=== PATIENT | male | born 1945 | race African-American/Black ===

== ENCOUNTER 2016-07-13 17:28 | Emergency (ER) | payer OTHER ==
[2016-07-13 17:34] VITALS: BP 131/90; PULSE 94; BMI 26.4
[2016-07-13] MEDS ORDERED: morphine CARPU-JECT 4 MG/1 ML DISP.SYRIN IVPUSH ONE (18:14)
[2016-07-13] MEDS ORDERED: SODIUM CHLORIDE 1,000 ML IV STA (18:14)
[2016-07-13] MEDS ORDERED: ONDANSETRON 4 MG/2 ML VIAL IVPUSH ONE (18:14)
--- NOTE | 2016-07-13 18:19 | PDOC ---
History of Present Illness - General History Source: Patient Exam Limitations: No Limitations - History of Present Illness Initial Comments: CHIEF COMPLAINT: 71 y/o afebrile male with PMH gout c/o abdominal pain with nausea today. HISTORY OF PRESENT ILLNESS: The patient states he was getting hot sweats on and off since yesterday. He ignored it but today he felt cramping in his hands and legs and then began feeling nauseous with right sided abd pain. The patient denies fever, VAIL, cough, vomiting, CP, SOB, back pain, hematuria, dysuria, constipation. Vital signs on arrival are notable for pulse of 94. REVIEW OF SYSTEMS: GENERAL/CONSTITUTIONAL: +hot sweats. No weakness. No weight change. HEAD, EYES, EARS, NOSE AND THROAT: No change in vision. No ear pain or discharge. No sore throat. CARDIOVASCULAR: No chest pain or shortness of breath. RESPIRATORY: No cough, wheezing, or hemoptysis. GASTROINTESTINAL: +nausea, right sided abd pain. No vomiting, diarrhea, constipation. GENITOURINARY: No dysuria, frequency, or change in urination. MUSCULOSKELETAL: No joint or muscle swelling or pain. No neck or back pain. SKIN: No rash or easy bruising. NEUROLOGIC: No headache, vertigo, loss of consciousness, or loss of sensation. PHYSICAL EXAM: GENERAL: The patient is awake, alert, and fully oriented, in obvious moderate discomfort. He is trying to remain very still in the bed. HEAD: Normal with no signs of trauma. ENT: Pupils equal, round and reactive to light, extraocular movements intact, sclera anicteric, conjunctiva clear. Neck supple. LUNGS: Clear to auscultation bilaterally. Normal excursion. No respiratory distress or use of accessory muscles. CV: RRR, S1/S2, no MRG. Cap refill < 2 sec. ABDOMEN: Soft, non-distended, TTP of RUQ and RLQ with +davis's sign. No rebound, guarding or rigidity. Negative heel jar sign. +obturator sign. EXTREMITIES: Normal range of motion, no edema. NEUROLOGICAL: Normal speech, normal gait. CN II-XII grossly intact. PSYCH: Normal mood, normal affect. SKIN: Warm, dry, normal turgor, no rashes or lesions noted. <Jessica Henry - Last Filed: 07/13/16 18:13> <Ricky Shultz - Last Filed: 07/13/16 22:35> - General Chief Complaint: Pain Stated Complaint: NUMBNESS Time Seen by Provider: 07/13/16 17:55 Past History - Past Medical History HTN: Yes Hypercholesterolemia: Yes Suicide Attempt (Hx): No Other medical history: UNUSUAL FEELING TO B/L FEET. - Psycho/Social/Smoking Cessation Hx Anxiety: No Suicidal Ideation: No Smoking Status: No Smoking History: Never smoked Have you smoked in the past 12 months: No Number of Cigarettes Smoked Daily: 0 Hx Alcohol Use: No Drug/Substance Use Hx: No Substance Use Type: None <Jessica Henry - Last Filed: 07/13/16 18:13> <Ricky Shultz - Last Filed: 07/13/16 22:35> - Past Medical History Allergies/Adverse Reactions: Allergies Allergy/AdvReac Type Severity Reaction Status Date / Time aspirin Allergy Verified 07/13/16 17:33 clindamycin Allergy Verified 07/13/16 17:33 Home Medications: Ambulatory Orders Colchicine [Colcrys -] 0.6 mg PO DAILY #15 tablet 09/29/15 Gabapentin [Neurontin] 300 mg PO BID 07/13/16 Lisinopril [Prinivil] 20 mg PO DAILY 07/13/16 Naproxen [Naprosyn -] 300 mg PO BID 07/13/16 Rosuvastatin Calcium [Crestor] 10 mg PO HS 07/13/16 *Physical Exam - Vital Signs Last Vital Signs Temp Pulse Resp BP Pulse Ox 98.0 F 94 H 18 131/90 99 07/13/16 17:29 07/13/16 17:29 07/13/16 17:29 07/13/16 17:29 07/13/16 17:29 <Jessica Henry - Last Filed: 07/13/16 18:13> - Vital Signs Last Vital Signs Temp Pulse Resp BP Pulse Ox 99.8 F H 94 H 18 131/90 99 07/13/16 20:21 07/13/16 17:29 07/13/16 17:29 07/13/16 17:29 07/13/16 17:29 <Ricky Shultz - Last Filed: 07/13/16 22:35> Heart Score/ECG Review - ECG Intrepretation Comment:: Twelve-lead EKG was performed and reviewed by Dr. Villanueva. There is normal sinus rhythm with a normal rate. The axis is normal. The intervals are normal. There are no ST or T wave abnormalities. Impression: Normal twelve-lead EKG <Jessica Henry - Last Filed: 07/13/16 18:13> ED Treatment Course - LABORATORY CBC & Chemistry Diagram: 07/13/16 19:00 07/13/16 20:00 - ADDITIONAL ORDERS Additional order review: Laboratory Results 07/13/16 07/13/16 07/13/16 20:00 20:00 19:06 INR Sodium 141 Cancelled Potassium 4.2 Cancelled Chloride 107 Cancelled Carbon Dioxide 24 Cancelled Anion Gap 10 Cancelled BUN 17 Cancelled Creatinine 1.7 H D Cancelled Creat Clearance w eGFR 39.93 Cancelled Random Glucose 102 Cancelled Lactic Acid Calcium 8.4 L Cancelled Magnesium 2.2 Total Bilirubin 0.4 D Cancelled AST 25 Cancelled ALT 28 D Cancelled Alkaline Phosphatase 123 H Cancelled Creatine Kinase 292 D Cancelled Troponin I < 0.02 Cancelled Total Protein 6.9 Cancelled Albumin 3.3 L Cancelled Lipase 75 Cancelled 07/13/16 07/13/16 19:06 19:00 INR 1.11 Sodium Potassium Chloride Carbon Dioxide Anion Gap BUN Creatinine Creat Clearance w eGFR Random Glucose Lactic Acid 2.225 H* Calcium Magnesium Total Bilirubin AST ALT Alkaline Phosphatase Creatine Kinase Troponin I Total Protein Albumin Lipase 07/13/16 19:00 RBC 5.01 MCV 85.2 MCHC 33.5 RDW 13.8 MPV 8.7 D Neutrophils % 67.8 D Lymphocytes % 18.6 D Monocytes % 10.7 H Eosinophils % 0.9 Basophils % 2.0 D - Medications Given in the ED: ED Medications Discontinued Medications Generic Name Dose Route Start Last Admin Trade Name Freq PRN Reason Stop Dose Admin Sodium Chloride 1,000 mls @ 1,000 mls/hr 07/13/16 18:14 07/13/16 19:01 Normal Saline - IV 07/13/16 19:13 1,000 mls/hr ASDIR STA Administration Morphine Sulfate 4 mg 07/13/16 18:14 07/13/16 19:01 Morphine Injection - IVPUSH 07/13/16 18:15 4 mg ONCE ONE Administration Ondansetron HCl 4 mg 07/13/16 18:14 07/13/16 19:01 Zofran Injection IVPUSH 07/13/16 18:15 4 mg ONCE ONE Administration <Ricky Shultz - Last Filed: 07/13/16 22:35> Medical Decision Making - Medical Decision Making A/P:P 71 y/o afebrile male with cholecystitis vs kidney stone vs appendicitis. Plan is as follows: 1. Labs/EKG 2. UA/culture 3. Gallbladder ultrasound 4. IV fluids 5. IV morphine 6. IV zofran Depending on labs and ultrasound results will determine if CT scan is needed. I am signing this patient out to my colleague: SHANNON Shultz In brief, this patient is being seen in the ED for a chief complaint of: abdominal pain and nausea. I have completed the initial assessment interview note and have ordered: labs, UA, EKG, gallbladder ultrasound, pain meds, IVF, zofran I have reviewed the following results: EKG Pending results are: Rest Please call the PCP:Dr Cisneros Plan for disposition is as follows: Pending <Jessica Henry - Last Filed: 07/13/16 18:13> *DC/Admit/Observation/Transfer <Jessica Henry - Last Filed: 07/13/16 18:13> <Ricky Shultz - Last Filed: 07/13/16 22:35> Diagnosis at time of Disposition: Abdominal pain, Nausea - Referrals Referrals: Lauren Cisneros [Primary Care Provider] -
[2016-07-13] MEDS ORDERED: morphine CARPU-JECT 4 MG/1 ML DISP.SYRIN ONE (18:48)
[2016-07-13] MEDS ORDERED: ONDANSETRON 4 MG/2 ML VIAL ONE (18:48)
[2016-07-13 19:16] LABS: EOSINOPHIL 0.9 % (0-4.5); MCH 28.5 pg (25.7-33.7); MCHC 33.5 g/dl (32.0-35.9); MEAN CELL VOLUME 85.2 fl (80-96); MEAN PLT VOLUME 8.7 fl (7.5-11.1); NEUTROPHILS 67.8 % (42.8-82.8); PLATELET COUNT 172 K/MM3 (134-434); RDW 13.8 % (11.9-15.9); WHITE BLOOD COUNT 7.9 K/mm3 (4.0-10.0)
[2016-07-13 19:27] LABS: INR 1.11 (0.82-1.09); PROTHROMBIN TIME (PATIENT) 12.2 SEC (9.98-11.88)
[2016-07-13 20:21] VITALS: TEMP 99.8
[2016-07-13 20:52] LABS: ALBUMIN 3.3 g/dl (3.4-5.0); ANION GAP 10 (8-16); BILIRUBIN,TOTAL 0.4 mg/dL (0.2-1.0); CALCIUM 8.4 mg/dL (8.5-10.1); CO2 24 mmol/L (21-32); CREATININE 1.7 mg/dL (0.7-1.3); GLUCOSE,RANDOM 102 mg/dL (74-106); SGOT/AST 25 U/L (15-37); SGPT/ALT 28 U/L (12-78); TOT PROT 6.9 g/dl (6.4-8.2)
[2016-07-13 20:55] LABS: ALK PHOS 123 U/L (45-117); TROPONIN I < 0.02 ng/ml (0.00-0.05)
--- NOTE | 2016-07-13 22:36 | PDOC ---
*Physical Exam - Vital Signs Last Vital Signs Temp Pulse Resp BP Pulse Ox 99.8 F H 94 H 18 131/90 99 07/13/16 20:21 07/13/16 17:29 07/13/16 17:29 07/13/16 17:29 07/13/16 17:29 ED Treatment Course - LABORATORY CBC & Chemistry Diagram: 07/13/16 19:00 07/13/16 20:00 - ADDITIONAL ORDERS Additional order review: Laboratory Results 07/13/16 07/13/16 07/13/16 20:00 20:00 19:06 INR Sodium 141 Cancelled Potassium 4.2 Cancelled Chloride 107 Cancelled Carbon Dioxide 24 Cancelled Anion Gap 10 Cancelled BUN 17 Cancelled Creatinine 1.7 H D Cancelled Creat Clearance w eGFR 39.93 Cancelled Random Glucose 102 Cancelled Lactic Acid Calcium 8.4 L Cancelled Magnesium 2.2 Total Bilirubin 0.4 D Cancelled AST 25 Cancelled ALT 28 D Cancelled Alkaline Phosphatase 123 H Cancelled Creatine Kinase 292 D Cancelled Troponin I < 0.02 Cancelled Total Protein 6.9 Cancelled Albumin 3.3 L Cancelled Lipase 75 Cancelled 07/13/16 07/13/16 19:06 19:00 INR 1.11 Sodium Potassium Chloride Carbon Dioxide Anion Gap BUN Creatinine Creat Clearance w eGFR Random Glucose Lactic Acid 2.225 H* Calcium Magnesium Total Bilirubin AST ALT Alkaline Phosphatase Creatine Kinase Troponin I Total Protein Albumin Lipase 07/13/16 19:00 RBC 5.01 MCV 85.2 MCHC 33.5 RDW 13.8 MPV 8.7 D Neutrophils % 67.8 D Lymphocytes % 18.6 D Monocytes % 10.7 H Eosinophils % 0.9 Basophils % 2.0 D - RADIOLOGY Radiograph Interpretation: 07/13/16 22:35 Patient Name: Antonio Cain THIS IS A PRELIMINARY REPORT FROM IMAGING ASSISTANT [facility]ESS[facility] EXAM: Abdominal ultrasound limited IMAGES: 44 DATE OF SERVICE: 2016-07-13 19:23:39.0 REASON FOR EXAM: Right upper quadrant pain COMPARISON: None FINDINGS: Visualized hepatic parenchyma is homogeneous. Liver measures 14.7 cm in length. There are no obvious gallstones. Gallbladder wall is normal in thickness. Common bile duct diameter within normal limits. Visualized pancreas is echogenic, likely fatty infiltrated. There is no hydronephrosis on the right. THIS DOCUMENT HAS BEEN ELECTRONICALLY SIGNED Sacha Portillo MD 07/13/2016 21:16 EST - Medications Given in the ED: ED Medications Discontinued Medications Generic Name Dose Route Start Last Admin Trade Name Corinne PRN Reason Stop Dose Admin Sodium Chloride 1,000 mls @ 1,000 mls/hr 07/13/16 18:14 07/13/16 19:01 Normal Saline - IV 07/13/16 19:13 1,000 mls/hr ASDIR STA Administration Morphine Sulfate 4 mg 07/13/16 18:14 07/13/16 19:01 Morphine Injection - IVPUSH 07/13/16 18:15 4 mg ONCE ONE Administration Ondansetron HCl 4 mg 07/13/16 18:14 07/13/16 19:01 Zofran Injection IVPUSH 07/13/16 18:15 4 mg ONCE ONE Administration Progress Note - Progress Note Progress Note: 0205hrs: Pt is pain free *DC/Admit/Observation/Transfer Diagnosis at time of Disposition: Nausea, Renal stone Abdominal pain Qualifiers: Abdominal location: right upper quadrant Qualified Code(s): R10.11 - Right upper quadrant pain Hydronephrosis Qualifiers: Hydronephrosis type: unspecified Qualified Code(s): N13.30 - Unspecified hydronephrosis - Discharge Dispostion Disposition: HOME Condition at time of disposition: Improved Admit: No - Referrals Referrals: Lauren Cisneros [Primary Care Provider] - Jesus Domínguez MD., [Staff Physician] - - Patient Instructions Printed Discharge Instructions: Hydronephrosis -- Adult, DI for Kidney Stones Additional Instructions: Increase fluids Please follow up with your urologist Return to the ER for severe/persistent/worsening symptoms, fever or nausea/ vomiting The PRELIMINARY report has been given to you. A permanent report will be generated within 24 hours. Patient Name: Antonio Cain THIS IS A PRELIMINARYREPORT FROM IMAGING ASSISTANT PROFESSOR IN FAMILY [facility] EXAM: CT abdomen and pelvis without contrast IMAGES: 444 INDICATION: Right lower quadrant and right upper quadrant pain DATE OF SERVICE: 2016-07-14 02:07:53.0 COMPARISON: none FINDINGS: Right lower lobe subsegmental atelectasis is noted.. The visualized cardiac chambers are normal size and configuration. There is [id number] right hydronephrosis and perinephric inflammation without and obstructing stone identified. Patient may have recently passed a stone. No intraparenchymal stones are noted. Normal unenhanced liver, gallbladder, pancreas, spleen, adrenal glands and left kidney. Tiny hiatal hernia is noted. The abdominal small and large bowel are normal. There is no aortic aneurysm. There is no significant retroperitoneal lymphadenopathy. The pelvic small and large bowel are normal. The appendix is normal. The urinary bladder is normal. The prostate gland is mildly enlarged. No pelvic free fluid is identified. There is no significant pelvic lymphadenopathy. IMPRESSION: [id number] right hydronephrosis and perinephric inflammation may be due to a recently passed stone. Mild prostate enlargement. THIS DOCUMENT HAS BEEN ELECTRONICALLY SIGNED Paco Vaughn MD 07/14/2016 02:38 EST - Post Discharge Activity
[2016-07-13] MEDS ORDERED: morphine CARPU-JECT 2 MG/1 ML DISP.SYRIN IVPUSH ONE (22:44)
[2016-07-13] MEDS ORDERED: SODIUM CHLORIDE 1,000 ML IV SCH (22:45)
[2016-07-13] MEDS ORDERED: morphine CARPU-JECT 2 MG/1 ML DISP.SYRIN ONE (23:14)
[2016-07-14] MEDS ORDERED: morphine CARPU-JECT 2 MG/1 ML DISP.SYRIN IVPUSH ONE (00:54)
[2016-07-14] MEDS ORDERED: morphine CARPU-JECT 2 MG/1 ML DISP.SYRIN ONE (01:13)
--- NOTE | 2016-07-14 23:30 | EKG ---
Test Reason : Blood Pressure : / mmHG Vent. Rate : 087 BPM Atrial Rate : 087 BPM P-R Int : 150 ms QRS Dur : 088 ms QT Int : 370 ms P-R-T Axes : 052 -50 027 degrees QTc Int : 445 ms NORMAL SINUS RHYTHM POSSIBLE LEFT ATRIAL ENLARGEMENT POSSIBLE INCOMPLETE RIGHT BUNDLE BRANCH BLOCK LEFT ANTERIOR FASCICULAR BLOCK ABNORMAL ECG WHEN COMPARED WITH ECG OF 29-MAY-2015 10:12, RBBB PATTERN IS SEEN Confirmed by MARIAMA JACOBSEN MD ([id number]) on 07/14/2016 11:30:30 PM Referred By: Confirmed By:MARIAMA JACOBSEN MD
== END 2016-07-14 03:11 | disposition home or self-care (01) ==
LOC: SUPCPDRO 17:28 → JER 17:28
PROC: 3E033NZ Introduction of Analgesics, Hypnotics, Sedatives into Peripheral Vein, Percutaneous Approach (ICD-10-PCS; principal; 2016-07-13)
PROC: 3E033GC Introduction of Other Therapeutic Substance into Peripheral Vein, Percutaneous Approach (ICD-10-PCS; 2016-07-13)
DX: N13.2 Hydronephrosis with renal and ureteral calculous obstruction (principal); I10 Essential (primary) hypertension; E78.00 Pure hypercholesterolemia, unspecified
CPT/HCPCS: 36415; 74150-TC; 74176-TC; 76705-TC; 80053; 82550; 82553; 83605; 83690; 83735; 84484; 85025; 85610; 93005; 93010; 96374; 96375; 96376; 99285-25

== ENCOUNTER 2016-08-13 10:03 | Emergency (ER) | payer OTHER ==
[2016-08-13 10:11] VITALS: BP 145/78; PULSE 93; TEMP 98; BMI 26.4
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
== END 2016-08-13 11:57 | disposition home or self-care (01) ==
LOC: JERFT 10:03
PROC: 0QSRXZZ Reposition Left Toe Phalanx, External Approach (ICD-10-PCS; principal; 2016-08-13)
DX: S92.512A Displaced fracture of proximal phalanx of left lesser toe(s), initial encounter for closed fracture (principal); W22.8XXA Striking against or struck by other objects, initial encounter; Y93.89 Activity, other specified; Y92.038 Other place in apartment as the place of occurrence of the external cause
CPT/HCPCS: 28515; 73630-TC-LT; 73660-TC; 99281-25

== ENCOUNTER 2016-08-15 09:38 | Emergency (ER) | payer OTHER ==
[2016-08-15 09:46] VITALS: BP 141/80; PULSE 97; TEMP 97.8; BMI 25.7
--- NOTE | 2016-08-15 10:02 | PDOC ---
History of Present Illness - General Chief Complaint: Injury Stated Complaint: TOE FRACTURE Time Seen by Provider: 08/15/16 10:01 History Source: Patient Exam Limitations: No Limitations - History of Present Illness Initial Comments: 08/15/16 11:03 My chief complaint: Left third toe pain 08/15/16 12:24 History of present illness: Patient is a 71-year-old male with a history of hypertension, gout, and hyperlipidemia here today complaining of reinjuring his left third toe hitting it on the leg of a table last night. Patient reports that it is not as well aligned as well as it had been when he was here on 2016 when he originally hit it on a door fracturing his left third proximal phalannx and it was reduced. There was no post reduction x-ray done and 2016 to compare it to. Patient not take anything for pain prior to coming here today patient does not want any pain medication currently. Patient denies any numbness of toe. Occurred: reports: other (08/13/16 banged left toes on door seen here fx of left thrid proximal phalanx noted ) Lower Extremity Pain Location: left: 3rd toe (left proximal phalanx ) Method of Injury: Yes: direct blow (to leg of table last night ) Lower Ext. Injury Location - Specific Injury Location Foot: left foot pain, left foot swelling (third proximal phalanx) Extremity Pain Location - Extremity Pain Location Extremity Pain Locations: left: 3rd toe (proximal phalanx) Past History - Past Medical History Allergies/Adverse Reactions: Allergies Allergy/AdvReac Type Severity Reaction Status Date / Time aspirin Allergy Verified 08/15/16 09:42 clindamycin Allergy Verified 08/15/16 09:42 Home Medications: Ambulatory Orders Colchicine [Colcrys -] 0.6 mg PO DAILY #15 tablet 09/29/15 Gabapentin [Neurontin] 300 mg PO BID 07/13/16 Lisinopril [Prinivil] 20 mg PO DAILY 07/13/16 Naproxen [Naprosyn -] 300 mg PO BID 07/13/16 Rosuvastatin Calcium [Crestor] 10 mg PO HS 07/13/16 Acetaminophen with Codeine [Tylenol with Codeine #3 Tablet] 1 each PO Q6H #12 tablet MDD 4 08/13/16 HTN: Yes Hypercholesterolemia: Yes Suicide Attempt (Hx): No - Psycho/Social/Smoking Cessation Hx Anxiety: No Suicidal Ideation: No Smoking Status: No Smoking History: Never smoked Have you smoked in the past 12 months: No Number of Cigarettes Smoked Daily: 0 Hx Alcohol Use: No Drug/Substance Use Hx: No Substance Use Type: None Review of Systems - Review of Systems Able to Perform ROS?: Yes Constitutional: No: Symptoms Reported HEENTM: No: Symptoms Reported Respiratory: No: Symptoms reported Cardiac (ROS): No: Symptoms Reported ABD/GI: No: Symptoms Reported Musculoskeletal: Yes: Joint Pain (left third proximal toe), Joint Swelling ( left third proximal phalanx) Integumentary: No: Symptoms Reported Neurological: No: Symptoms reported *Physical Exam - Vital Signs Last Vital Signs Temp Pulse Resp BP Pulse Ox 97.8 F 97 H 19 141/80 97 08/15/16 09:42 08/15/16 09:42 08/15/16 09:42 08/15/16 09:42 08/15/16 09:42 - Physical Exam General Appearance: Yes: Appropriately Dressed Vascular Pulses: Doralis-Pedis (L): 4+ Extremity: positive: Normal Capillary Refill, Tender (left proximal phalanx), Swelling (minimal left proximal phalanx). negative: Normal Range of Motion ( left third toe ) Integumentary: positive: Normal Color Neurologic: positive: Alert, Normal Response (left foot and toes ), Respond to painful stimul (left third toe ), Responsive Procedures - Consent Consent obtained: From Patient - Joint Reduction Left Pre-Procedure NV Exam: normal Conscious Sedation: No Complications: No Progress: 08/15/16 12:22 Patient requesting that his left third toe be reduced without anesthesia than followed by post reduction xray without any changes left third and 2nd toes buddied taped here Medical Decision Making - Medical Decision Making 08/15/16 12:27 Patient is a 71-year-old male with a history of hypertension, gout, and hyperlipidemia here today complaining of reinjuring his left third toe hitting it on the leg of a table last night. Patient reports that it is not as well aligned as well as it had been when he was here on 08/13/2016 when he originally hit it on a door fracturing his left third proximal phalannx and it was reduced. There was no post reduction x-ray done and 08/13/2016 to compare it to. Patient not take anything for pain prior to coming here today patient does not want any pain medication currently. Patient denies any numbness of toe. The injury of left third toe rule out worsening bony injury Plan: X-ray left foot revealed a proximal phalanx fracture of the left third toe no significant change noted Try to further reduce left third toe patient did not want any anesthesia post reduction x-ray done no significant change was noted Chad taped left third and second toe together *DC/Admit/Observation/Transfer Diagnosis at time of Disposition: Toe fracture, left Qualifiers: Encounter type: initial encounter Toe: lesser toe Fracture type: closed Phalanx : proximal Fracture alignment: displaced Qualified Code(s): S92.512A - Displaced fracture of proximal phalanx of left lesser toe(s), initial encounter for closed fracture - Discharge Dispostion Disposition: HOME Condition at time of disposition: Stable - Patient Instructions Additional Instructions: Follow-up with modeler as soon as possible for further evaluation continue to chad tape second and third toe together keep a shoe on your foot at all times except when sleeping Take pain medication as previously ordered from here on 08/13/2016 Return to emergency room if any further injury to left third toe or any numbness of toe Patient voiced understanding of discharge instructions and all questions were answered
== END 2016-08-15 12:39 | disposition home or self-care (01) ==
LOC: JERFT 09:38
PROC: 0QSQXZZ Reposition Right Toe Phalanx, External Approach (ICD-10-PCS; principal; 2016-08-15)
DX: S92.512A Displaced fracture of proximal phalanx of left lesser toe(s), initial encounter for closed fracture (principal); W22.03XA Walked into furniture, initial encounter; Y93.89 Activity, other specified; Y92.038 Other place in apartment as the place of occurrence of the external cause; I10 Essential (primary) hypertension; E78.5 Hyperlipidemia, unspecified; E78.00 Pure hypercholesterolemia, unspecified; M10.9 Gout, unspecified
CPT/HCPCS: 73630-TC-LT; 73660-TC; 99281-25

== ENCOUNTER 2017-10-27 15:10 | Emergency (ER) | payer OTHER ==
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
[2017-10-27 15:30] VITALS: BP 162/99; PULSE 86; TEMP 98.9; BMI 25.1
--- NOTE | 2017-10-27 16:36 | PDOC ---
*Physical Exam - Vital Signs Last Vital Signs Temp Pulse Resp BP Pulse Ox 98.9 F 86 19 162/99 99 10/27/17 15:25 10/27/17 15:25 10/27/17 15:25 10/27/17 15:25 10/27/17 15:25 - Physical Exam Comments: 10/27/17 16:34 General Appearance: Well-developed, well-nourished A&O 3 NAD Head: NC/AT Eyes: PERRL Fundi are normal and vision is grossly intact Ears: External auditory canals are normal and clear; tympanic membranes are normal; hearing is grossly intact Nose: Normal no discharge Throat and Oral cavity: Pharynx is clear without inflammation swelling exudate no lesions teeth and gingiva are normal Neck: There is no midline tenderness, there is mild paracervical musculature spasm B UE 5/5 strength without any gross sensory or motor deficits. NVID lymphadenopathy masses or thyromegaly Cardiac: S1 and S2 without murmurs no peripheral edema cyanosis or pallor; extremities are warm and well-perfused; capillary refill is less than 2 seconds without carotid bruits Lungs: CTA and Percussion no rales or rhonchi or wheezing breath sounds are full bilaterally Abdomen: Positive bowel sounds; soft nondistended, nontender, no guarding or rebound tenderness; no masses Musculoskeletal; Adequately aligned spine There is mild paralumbar musculature spasm. There is 5/5 strength in B LE positive SLR test on the L negative on the right. There are no gross senosory or motor deficits. NVID Neurologic: Cranial nerves II-XII are grossly intact strength and sensation are symmetric and intact cerebellar testing is negative Skin: Normal color and temperature normal texture turgor no lesions or eruptions ED Treatment Course - RADIOLOGY Radiology Studies Ordered: Category Date Time Status CERVICAL SPINE CT W/O CONTR [CT] Stat CT Scan 10/27/17 16:[address] WITHOUT CONTRAST [CT] Stat CT Scan 10/27/17 16:[address] W/O CONTRAST [CT] Stat CT Scan 10/27/17 16:26 Ordered *DC/Admit/Observation/Transfer Diagnosis at time of Disposition: Cervical strain, Lumbar strain - Discharge Dispostion Disposition: HOME Condition at time of disposition: Stable Admit: No - Referrals Referrals: Lauren Cisneros [Primary Care Provider] - Dave Wilde [Non Staff, Medical] - - Patient Instructions Printed Discharge Instructions: Whiplash, DI for Whiplash, DI for Cervical Muscle Strain, DI for Back Strain or Sprain Additional Instructions: Return to emergency room if symptoms are unresolved or worsen prior to follow-up - Post Discharge Activity
== END 2017-10-27 18:09 | disposition home or self-care (01) ==
LOC: JERFT 15:10
DX: S39.012A Strain of muscle, fascia and tendon of lower back, initial encounter (principal); S16.1XXA Strain of muscle, fascia and tendon at neck level, initial encounter; V49.49XA Driver injured in collision with other motor vehicles in traffic accident, initial encounter; Y92.488 Other paved roadways as the place of occurrence of the external cause; Y93.89 Activity, other specified; Y99.8 Other external cause status
CPT/HCPCS: 70450-TC; 72125-TC; 72131-TC; 99281-25

== ENCOUNTER 2017-11-03 13:04 | Emergency (ER) | payer OTHER ==
[2017-11-03 13:08] VITALS: BP 159/92; PULSE 92; TEMP 98; BMI 25.1
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
== END 2017-11-03 14:32 | disposition home or self-care (01) ==
LOC: JERFT 13:04
DX: M54.2 Cervicalgia (principal); V89.2XXA Person injured in unspecified motor-vehicle accident, traffic, initial encounter; Y92.488 Other paved roadways as the place of occurrence of the external cause; Y93.89 Activity, other specified; Y99.8 Other external cause status
CPT/HCPCS: 99281-25

== ENCOUNTER 2018-06-13 06:24 | Emergency (ER) | payer OTHER ==
[2018-06-13 07:24] VITALS: BP 159/81; PULSE 83; TEMP 97.9; BMI 26.2
--- NOTE | 2018-06-13 07:32 | PDOC ---
History of Present Illness - General Chief Complaint: Pain, Acute Stated Complaint: LEFT LEG PAIN Time Seen by Provider: 06/13/18 07:32 History Source: Patient Exam Limitations: No Limitations - History of Present Illness Initial Comments: 06/13/18 09:00 Patient is a 73-year-old male with past medical history of gout, hypertension not on medication, who presents to the emergency department today for left ankle pain. Patient states that he pulled the blanket over his ankle last night and feels that it might have been caught in the blanket and twisted. He states it hurts to put weight on his ankle and that it is swollen. Denies numbness and tingling to the extremities, weakness to the extremity and fever. Past History - Past Medical History Allergies/Adverse Reactions: Allergies Allergy/AdvReac Type Severity Reaction Status Date / Time aspirin Allergy Verified 11/03/17 13:05 clindamycin Allergy Verified 11/03/17 13:05 Home Medications: Ambulatory Orders Gabapentin [Neurontin] 300 mg PO BID 07/13/16 Lisinopril [Prinivil] 20 mg PO DAILY 07/13/16 Naproxen [Naprosyn -] 300 mg PO BID 07/13/16 Rosuvastatin Calcium [Crestor] 10 mg PO HS 07/13/16 COPD: No HTN: Yes Hypercholesterolemia: Yes - Suicide/Smoking/Psychosocial Hx Smoking Status: No Smoking History: Never smoked Have you smoked in the past 12 months: No Number of Cigarettes Smoked Daily: 0 If you are a former smoker, when did you quit?: 50yrs ago Information on smoking cessation initiated: No Hx Alcohol Use: No Drug/Substance Use Hx: No Substance Use Type: None Review of Systems - Review of Systems Able to Perform ROS?: Yes Comments:: 06/13/18 09:00 CONSTITUTIONAL: Absent: fever, chills, diaphoresis, generalized weakness, malaise, loss of appetite HEENT: Absent: rhinorrhea, nasal congestion, throat pain, throat swelling, difficulty swallowing, mouth swelling, ear pain, eye pain, visual Changes CARDIOVASCULAR: Absent: chest pain, loss of consciousness, palpitations, irregular heart rate, peripheral edema RESPIRATORY: Absent: cough, shortness of breath, dyspnea with exertion, orthopnea, wheezing, stridor, hemoptysis GASTROINTESTINAL: Absent: abdominal pain, abdominal distension, nausea, vomiting, diarrhea, constipation, melena, hematochezia GENITOURINARY: Absent: dysuria, frequency, urgency, hesitancy, hematuria, flank pain, genital pain MUSCULOSKELETAL: Present: L ankle pain Absent: myalgia, arthralgia, joint swelling SKIN: Absent: rash, itching, pallor HEMATOLOGIC/IMMUNOLOGIC: Absent: easy bleeding, easy bruising, lymphadenopathy, frequent infections ENDOCRINE: Absent: unexplained weight gain, unexplained weight loss, heat intolerance, cold intolerance NEUROLOGIC: Absent: headache, focal weakness or paresthesias, dizziness, unsteady gait, seizure, mental status changes, bladder or bowel incontinence PSYCHIATRIC: Absent: anxiety, depression, suicidal or homicidal ideation, hallucinations. Is the patient limited Cymraes proficient: No *Physical Exam - Vital Signs Last Vital Signs Temp Pulse Resp BP Pulse Ox 97.9 F 83 18 159/81 100 06/13/18 06:32 06/13/18 06:32 06/13/18 06:32 06/13/18 06:32 06/13/18 06:32 - Physical Exam Comments: 06/13/18 09:01 GENERAL: The patient is awake, alert, and fully oriented, in no acute distress. HEAD: Normal with no signs of trauma. EYES: Pupils equal, round and reactive to light, extraocular movements intact, sclera anicteric, conjunctiva clear. EXTREMITIES: L ankle swollen at the lateral and medial malleolus with associated TTP. Pt able to range L ankle in all directions with pain. Normal range of motion, no edema. NEUROLOGICAL: Normal speech, normal gait. PSYCH: Normal mood, normal affect. SKIN: Warm, Dry, normal turgor, no rashes or lesions noted. Moderate Sedation - Procedure Monitoring Vital Signs: Procedure Monitoring Vital Signs Temperature 97.9 F 06/13/18 06:32 Pulse Rate 83 06/13/18 06:32 Respiratory Rate 18 06/13/18 06:32 Blood Pressure 159/81 06/13/18 06:32 O2 Sat by Pulse Oximetry (%) 100 06/13/18 06:32 Medical Decision Making - Medical Decision Making 06/13/18 09:02 Pt is a 73 y/o M who presents to the ED for L ankle pain starting this evening -TTP of the L lateral and medial malleolus with mild swelling. Able to range. Not warm to the touch -Unlikely gout at this time as physical exam is not impressive or consistent with gout -X-ray is negative for fractures -Probable ankle sprain -Treated with supportive therapy and tylenol -Ortho follow up given -DC home -I discussed the physical exam findings, ancillary test results and final diagnoses with the patient. I answered all of the patient's questions. The patient was satisfied with the care received and felt comfortable with the discharge plan and treatment plan. The Patient agrees to follow up with the primary care physician/specialist within 24-72 hours. Return precautions were given. *DC/Admit/Observation/Transfer Diagnosis at time of Disposition: Ankle sprain Qualifiers: Encounter type: initial encounter Involved ligament of ankle: unspecified ligament Laterality: left Qualified Code(s): S93.402A - Sprain of unspecified ligament of left ankle, initial encounter - Discharge Dispostion Disposition: HOME Condition at time of disposition: Stable Decision to Admit order: No - Referrals Referrals: Lauren Cisneros [Primary Care Provider] - Dave Jules MD [Staff Physician] - - Patient Instructions Additional Instructions: You sprained your ankle. Your x-ray was negative for broken bones. Please keep your ankle elevated while at rest above the level of your heart to reduce swelling. You may take Motrin 800 mg every 8 hours to help reduce pain and swelling. Please ice the area for 20 minute intervals at least 5 times a day to help reduce swelling. Please wear the Mohit wrap. Please follow-up with orthopedics in 1 week if your symptoms are not improving. Return to the emergency department if you have worsening pain, or unable to walk , numbness and tingling of the foot, or had any changes in her symptoms. - Post Discharge Activity Forms/Work/School Notes: Back to Work
[2018-06-13] MEDS ORDERED: ACETAMINOPHEN 650 MG/20.3 ML ORAL SOLUTION (CUPS) PO ONE (07:57)
[2018-06-13] MEDS ORDERED: ACETAMINOPHEN 325 MG TABLET (FP) ONE (08:08)
== END 2018-06-13 09:25 | disposition home or self-care (01) ==
LOC: JER 06:24
DX: S93.402A Sprain of unspecified ligament of left ankle, initial encounter (principal); X58.XXXA Exposure to other specified factors, initial encounter; Y93.89 Activity, other specified; Y92.89 Other specified places as the place of occurrence of the external cause; I10 Essential (primary) hypertension; M10.9 Gout, unspecified; Z87.891 Personal history of nicotine dependence; E78.00 Pure hypercholesterolemia, unspecified
CPT/HCPCS: 73610-TC-LT-FY; 99283-25

== ENCOUNTER 2018-08-26 07:21 | Observation (INO) | payer OTHER ==
--- NOTE | 2018-08-26 08:41 | PDOC ---
History of Present Illness - General History Source: Patient Exam Limitations: No Limitations <Da Sandoval - Last Filed: 08/26/18 09:25> - General History Source: Patient Exam Limitations: No Limitations <Ludy Gaytan - Last Filed: 08/26/18 15:30> - General Chief Complaint: Chest Pain Stated Complaint: CHEST DISCOMFORT Time Seen by Provider: 08/26/18 07:44 - History of Present Illness Initial Comments: 08/26/18 09:25 The patient is a 73 year old male with a past medical history of controlled HTN , controlled HLD, and gout here today for evaluation of chest pain. The patient reports that woke up this morning with squeezing, 10/10 right sided chest pain that is worse when turning his head. He reports taking tums, water, and his HTN medication which did not help. He notes that he has had this pain in the past with the last episode being 1 month ago but it never has been this bad. Patient denies headache, lightheadedness. Denies fever, chills. Denies shortness of breath. Denies nausea, vomiting, diarrhea, abdominal pain. Denies lower extremity edema. Allergies: aspirin, clindamycin Social history: Patient denies alcohol, drug, and tobacco use. PCP: Lauren Lucas (Da Sandoval) Past History <Da Sandoval - Last Filed: 08/26/18 09:25> - Past Medical History COPD: No HTN: Yes Hypercholesterolemia: Yes - Surgical History Cardiac Surgery: No Gastric Stapling: No Neurologic Surgery: No - Immunization History Td Vaccination: No TDAP Vaccination: No Immunization Up to Date: Yes - Suicide/Smoking/Psychosocial Hx Smoking Status: No Smoking History: Smoker current status UNK Have you smoked in the past 12 months: No Number of Cigarettes Smoked Daily: 0 If you are a former smoker, when did you quit?: 50yrs ago Hx Alcohol Use: No Drug/Substance Use Hx: No Substance Use Type: None <Ludy Gaytan - Last Filed: 08/26/18 15:30> - Past Medical History Allergies/Adverse Reactions: Allergies Allergy/AdvReac Type Severity Reaction Status Date / Time aspirin Allergy Verified 08/26/18 07:42 clindamycin Allergy Verified 08/26/18 07:42 Home Medications: Ambulatory Orders Rosuvastatin Calcium [Crestor] 10 mg PO HS 07/13/16 Review of Systems - Review of Systems Able to Perform ROS?: Yes <Da Sandoval - Last Filed: 08/26/18 09:25> <Ludy Gaytan - Last Filed: 08/26/18 15:30> - Review of Systems Comments:: 08/26/18 09:26 GENERAL/CONSTITUTIONAL: No fever or chills. No weakness. HEAD, EYES, EARS, NOSE AND THROAT: No change in vision. No ear pain or discharge. No sore throat. CARDIOVASCULAR: +right sided chest pain. No shortness of breath. RESPIRATORY: No cough, wheezing, or hemoptysis. GASTROINTESTINAL: No nausea, vomiting, diarrhea or constipation. GENITOURINARY: No dysuria, frequency, or change in urination. MUSCULOSKELETAL: No joint or muscle swelling or pain. No neck or back pain. SKIN: No rash NEUROLOGIC: No headache, vertigo, loss of consciousness, or change in strength/ sensation. ENDOCRINE: No increased thirst. No abnormal weight change. HEMATOLOGIC/LYMPHATIC: No anemia, easy bleeding, or history of blood clots. ALLERGIC/IMMUNOLOGIC: No hives or skin allergy. (Da Sandoval) *Physical Exam <Da Sandoval - Last Filed: 08/26/18 09:25> <Ludy Gaytan - Last Filed: 08/26/18 15:30> - Vital Signs Last Vital Signs Temp Pulse Resp BP Pulse Ox 98.1 F 73 16 138/83 99 08/26/18 07:43 08/26/18 07:43 08/26/18 07:43 08/26/18 07:43 08/26/18 07:50 - Physical Exam Comments: 08/26/18 09:26 GENERAL: The patient is in no acute distress. HEAD: Normal with no signs of trauma. EYES: PERRLA, EOMI, sclera anicteric, conjunctiva clear. ENT: Ears normal, nares patent, oropharynx clear without exudates. Moist mucous membranes. NECK: Normal range of motion, supple without lymphadenopathy, JVD, or masses. LUNGS: Breath sounds equal, clear to auscultation bilaterally. No wheezes, and no crackles. HEART:+right sided chest pain reproducible to palpation. Regular rate and rhythm , normal S1 and S2 without murmur, rub or gallop. ABDOMEN: Soft, nontender, normoactive bowel sounds. No guarding, no rebound. No masses palpable. EXTREMITIES: Normal range of motion, no edema. No clubbing or cyanosis. No erythema, or tenderness. NEUROLOGICAL: Cranial nerves II through XII grossly intact. Normal speech. No focal neurological deficits. MUSCULOSKELETAL: Back non-tender to palpation, no CVA tenderness SKIN: Warm, Dry, normal turgor, no rashes or lesions noted. (Da Sandoval) - Procedure Monitoring Vital Signs: Procedure Monitoring Vital Signs Temperature 98.1 F 08/26/18 07:43 Pulse Rate 73 08/26/18 07:43 Respiratory Rate 16 08/26/18 07:43 Blood Pressure 138/83 08/26/18 07:43 O2 Sat by Pulse Oximetry (%) 99 08/26/18 07:50 ED Treatment Course - LABORATORY CBC & Chemistry Diagram: 08/26/18 08:25 08/26/18 08:25 <Da Sandoval - Last Filed: 08/26/18 09:25> - LABORATORY CBC & Chemistry Diagram: 08/26/18 09:24 08/26/18 09:28 <Ludy Gaytan - Last Filed: 08/26/18 15:30> - ADDITIONAL ORDERS Additional order review: Laboratory Results 08/26/18 08/26/18 08/26/18 09:28 08:25 08:25 PT with INR Cancelled INR Cancelled Sodium 141 Cancelled Potassium 4.2 Cancelled Chloride 106 Cancelled Carbon Dioxide 29 Cancelled Anion Gap 7 L Cancelled BUN 15 Cancelled Creatinine 1.4 H Cancelled Creat Clearance w eGFR 49.68 Cancelled Random Glucose 101 Cancelled Calcium 8.6 Cancelled Total Bilirubin 0.5 Cancelled AST 25 Cancelled ALT 37 Cancelled Alkaline Phosphatase 125 H Cancelled Creatine Kinase 237 Cancelled Creatine Kinase Index 0.9 Cancelled CK-MB (CK-2) 2.3 Cancelled Troponin I < 0.02 Cancelled Total Protein 7.4 Cancelled Albumin 3.5 Cancelled 08/26/18 08/26/18 09:24 08:25 RBC 5.20 Cancelled MCV 88.0 Cancelled MCHC 34.3 Cancelled RDW 14.1 Cancelled MPV 8.0 Cancelled Neutrophils % 53.6 D Cancelled Lymphocytes % 34.3 D Cancelled Monocytes % 9.5 Cancelled Eosinophils % 2.3 D Cancelled Basophils % 0.3 Cancelled - RADIOLOGY Radiology Studies Ordered: Category Date Time Status CHEST CTA [CT] Stat CT Scan 08/26/18 11:12 Completed CHEST X-RAY PORTABLE* [RAD] Stat Radiology 08/26/18 08:41 Completed - Medications Given in the ED: ED Medications Discontinued Medications Generic Name Dose Route Start Last Admin Trade Name Corinne PRN Reason Stop Dose Admin Acetaminophen 975 mg 08/26/18 08:42 08/26/18 09:40 Tylenol - PO 08/26/18 08:43 975 mg ONCE ONE Administration Famotidine/Sodium Chloride 20 mg in 50 mls @ 100 mls/hr 08/26/18 08:42 09:40 Pepcid 20 Mg Premixed Ivpb - IVPB 08/26/18 09:11 100 mls/hr ONCE ONE Administration Medical Decision Making <Da Sandoval - Last Filed: 08/26/18 09:25> <Ludy Gaytan - Last Filed: 08/26/18 15:30> - Medical Decision Making 08/26/18 08:45 EKG - NSR rate of 69 bpm, Left axis deviation, no st elevation or depressions, t waves upright 08/26/18 09:08 Laboratory Tests 08/26/18 08:25 INR 1.03 73 yo M prior h/o HTN, HLD (not taking any medications), gout Pt presents to the ER with a complaint of right sided chest pain which began at 1:30 am while in bed Pain is sharp, no radiation, Pain associated with shortness of breath No fevers, chills cough Pain is worse with deep breath and palpation of the chest, also with turning his neck No trauma Pt has previously had symptoms like this, on month ago, he had something similar but it self resolved Pt reports no chest pain/shortness of breath with exertion Last stress test in the 90s 08/26/18 09:19 Laboratory Tests 08/26/18 08/26/18 08:25 08:25 INR 1.03 Sodium 133 L Potassium 4.8 Chloride 94 L Carbon Dioxide 33 H Anion Gap 6 L BUN 14 Creatinine 1.2 Random Glucose 110 H Creatine Kinase 339 H Troponin I 0.47 H 08/26/18 11:12 Laboratory Tests 08/26/18 08/26/18 09:24 09:28 WBC 5.5 Hgb 15.7 Hct 45.8 Plt Count 158 Sodium 141 Potassium 4.2 Chloride 106 Carbon Dioxide 29 BUN 15 Creatinine 1.4 H Random Glucose 101 Creatine Kinase 237 Creatine Kinase Index 0.9 CK-MB (CK-2) 2.3 Troponin I < 0.02 CTA ordered R/o PE 08/26/18 15:30 CTA negative for PE, no aneurysm, no effusion Will admit to Dr. Sorto Bedside ECHO being performed now (Ludy Gaytan) *DC/Admit/Observation/Transfer <Da Sandoval - Last Filed: 08/26/18 09:25> - Discharge Dispostion Decision to Admit order: Yes <Ludy Gaytan - Last Filed: 08/26/18 15:30> Diagnosis at time of Disposition: Chest pain Qualifiers: Chest pain type: unspecified Qualified Code(s): R07.9 - Chest pain, unspecified - Discharge Dispostion Condition at time of disposition: Stable Decision to Admit order Date/Time: Decision to Admit Order Category Date Time Status Decision to Admit to Hospital Routine Admission 08/26/18 15:12 Active - Referrals Referrals: Lauren Cisneros [Primary Care Provider] - - Patient Instructions - Post Discharge Activity - Attestations Scribe Attestion: 08/26/18 09:27 Documentation prepared by URMILA Doshi, acting as phlebotomist medical lab assistant for Ludy Gaytan MD. (Da Sandoval)
[2018-08-26] MEDS ORDERED: ACETAMINOPHEN 325 MG TABLET (FP) PO ONE (08:42)
[2018-08-26] MEDS ORDERED: FAMOTIDINE 20 MG/50 ML IVPB 20 MG/50 ML MG IVPB ONE ×2 (08:42→09:22)
[2018-08-26] MEDS ORDERED: ACETAMINOPHEN 325 MG TABLET (FP) ONE (09:21)
[2018-08-26 09:49] LABS: BASO % 0.3 % (0-2.0); EOS % 2.3 % (0-4.5); HEMATOCRIT 45.8 % (35.4-49); HEMOGLOBIN 15.7 GM/dL (11.7-16.9); LYMPH % 34.3 % (8-40); MCH 30.2 pg (25.7-33.7); MCHC 34.3 g/dl (32.0-35.9); MONO % 9.5 % (3.8-10.2); NEUT % 53.6 % (42.8-82.8); PLATELET COUNT 158 K/MM3 (134-434); RDW 14.1 % (11.9-15.9); WHITE BLOOD COUNT 5.5 K/mm3 (4.0-10.0)
[2018-08-26 10:27] LABS: ALBUMIN 3.5 g/dl (3.4-5.0); ALK PHOS 125 U/L (45-117); ANION GAP 7 MMOL/L (8-16); BILIRUBIN,TOTAL 0.5 mg/dL (0.2-1); BLOOD UREA NITROGEN 15 mg/dL (7-18); CALCIUM 8.6 mg/dL (8.5-10.1); CHLORIDE 106 mmol/L (98-107); CO2 29 mmol/L (21-32); CREATININE 1.4 mg/dL (0.55-1.3); GLUCOSE,RANDOM 101 mg/dL (74-106); POTASSIUM 4.2 mmol/L (3.5-5.1); SGOT/AST 25 U/L (15-37); SGPT/ALT 37 U/L (13-61); SODIUM 141 mmol/L (136-145); TOT PROT 7.4 g/dl (6.4-8.2)
--- NOTE | 2018-08-26 12:35 | EKG ---
Test Reason : Blood Pressure : / mmHG Vent. Rate : 069 BPM Atrial Rate : 069 BPM P-R Int : 164 ms QRS Dur : 086 ms QT Int : 422 ms P-R-T Axes : 048 -39 000 degrees QTc Int : 452 ms NORMAL SINUS RHYTHM POSSIBLE LEFT ATRIAL ENLARGEMENT LEFT AXIS DEVIATION ABNORMAL ECG WHEN COMPARED WITH ECG OF 13-JUL-2016 18:19, NO SIGNIFICANT CHANGE WAS FOUND Confirmed by ANTHONY LIVINGSTON, ROD ([id number]) on 08/26/2018 12:35:28 PM Referred By: Confirmed By:ROD CRUZ MD
--- NOTE | 2018-08-26 17:53 | HP ---
Admitting History and Physical - Primary Care Physician PCP: Eboni Sorto - Admission History of Present Illness: 73 year old male with a past medical history of controlled HTN, controlled HLD, and gout here today for evaluation of chest pain. The patient reports that woke up this morning with squeezing, 10/10 right sided chest pain that is worse when turning his head. He reports taking tums, water, and his HTN medication which did not help. He notes that he has had this pain in the past with the last episode being 1 month ago but it never has been this bad. Allergies: aspirin, clindamycin Social history: Patient denies alcohol, drug, and tobacco use. PCP: Lauren Lucas - Past Medical History Cardiovascular: Yes: HTN, Hyperlipdemia - Smoking History Smoking history: Smoker current status UNK Have you smoked in the past 12 months: No Aproximately how many cigarettes per day: 0 If you are a former smoker, when did you quit?: 50yrs ago - Alcohol/Substance Use Hx Alcohol Use: No Home Medications - Allergies Allergies/Adverse Reactions: Allergies Allergy/AdvReac Type Severity Reaction Status Date / Time aspirin Allergy Verified 08/26/18 07:42 clindamycin Allergy Verified 08/26/18 07:42 - Home Medications Home Medications: Ambulatory Orders Rosuvastatin Calcium [Crestor] 10 mg PO HS 07/13/16 Physical Examination Vital Signs: Vital Signs Temperature 99.0 F 08/26/18 16:52 Pulse Rate 93 H 08/26/18 16:52 Respiratory Rate 18 08/26/18 16:52 Blood Pressure 132/73 08/26/18 16:52 O2 Sat by Pulse Oximetry (%) 98 08/26/18 16:52 Constitutional: Yes: No Distress HENT: Yes: Atraumatic Neck: Yes: Supple Cardiovascular: Yes: Regular Rate and Rhythm Respiratory: Yes: CTA Bilaterally Gastrointestinal: Yes: Normal Bowel Sounds Extremities: Yes: WNL Edema: No Peripheral Pulses WNL: Yes Neurological: Yes: Alert Labs: CBC, BMP 08/26/18 09:24 08/26/18 09:28 Imaging - Results Cat Scan: Report Reviewed Problem List - Problems (1) HTN (hypertension) Assessment/Plan: monitor on tele Code(s): I10 - ESSENTIAL (PRIMARY) HYPERTENSION (2) HLD (hyperlipidemia) Assessment/Plan: on meds stable Code(s): E78.5 - HYPERLIPIDEMIA, UNSPECIFIED (3) Chest pain Assessment/Plan: fu cardiac profile cardiology consult Code(s): R07.9 - CHEST PAIN, UNSPECIFIED Qualifiers: Chest pain type: unspecified Qualified Code(s): R07.9 - Chest pain, unspecified Assessment/Plan Laboratory Tests 08/26/18 08/26/18 08/26/18 08:25 08:25 08:25 WBC Cancelled Corrected WBC (auto) Cancelled RBC Cancelled Hgb Cancelled Hct Cancelled MCV Cancelled MCH Cancelled MCHC Cancelled RDW Cancelled Plt Count Cancelled MPV Cancelled Absolute Neuts (auto) Cancelled Neutrophils % Cancelled Lymphocytes % Cancelled Monocytes % Cancelled Eosinophils % Cancelled Basophils % Cancelled Nucleated RBC % Cancelled Platelet Estimate Cancelled Platelet Comment Cancelled PT with INR Cancelled INR Cancelled Sodium Cancelled Potassium Cancelled Chloride Cancelled Carbon Dioxide Cancelled Anion Gap Cancelled BUN Cancelled Creatinine Cancelled Creat Clearance w eGFR Cancelled Random Glucose Cancelled Calcium Cancelled Total Bilirubin Cancelled AST Cancelled ALT Cancelled Alkaline Phosphatase Cancelled Creatine Kinase Cancelled Creatine Kinase Index Cancelled CK-MB (CK-2) Cancelled Troponin I Cancelled Total Protein Cancelled Albumin Cancelled 08/26/18 08/26/18 09:24 09:28 WBC 5.5 Corrected WBC (auto) RBC 5.20 Hgb 15.7 Hct 45.8 MCV 88.0 MCH 30.2 MCHC 34.3 RDW 14.1 Plt Count 158 MPV 8.0 Absolute Neuts (auto) 3.0 Neutrophils % 53.6 D Lymphocytes % 34.3 D Monocytes % 9.5 Eosinophils % 2.3 D Basophils % 0.3 Nucleated RBC % 0 Platelet Estimate Platelet Comment PT with INR INR Sodium 141 Potassium 4.2 Chloride 106 Carbon Dioxide 29 Anion Gap 7 L BUN 15 Creatinine 1.4 H Creat Clearance w eGFR 49.68 Random Glucose 101 Calcium 8.6 Total Bilirubin 0.5 AST 25 ALT 37 Alkaline Phosphatase 125 H Creatine Kinase 237 Creatine Kinase Index 0.9 CK-MB (CK-2) 2.3 Troponin I < 0.02 Total Protein 7.4 Albumin 3.5 Active Medications Generic Name Dose Route Start Last Admin Trade Name Freq PRN Reason Stop Dose Admin Acetaminophen 650 mg 08/26/18 17:55 Tylenol - PO Q6H PRN FEVER Heparin Sodium (Porcine) 5,000 unit 08/26/18 22:00 Heparin - SQ BID ALEX Rosuvastatin Calcium 10 mg 08/26/18 22:00 Crestor - PO HS ALEX
[2018-08-26] MEDS ORDERED: ACETAMINOPHEN 325 MG TABLET (FP) PO PRN (17:55)
[2018-08-26] MEDS ORDERED: ROSUVASTATIN CA 10 MG TABLET (FP) PO SCH (22:00)
[2018-08-26] MEDS ORDERED: HEPARIN NA (PORCINE) 5,000 UNITS/ML 1ML VIAL ONE (22:16)
[2018-08-26] MEDS ORDERED: GABAPENTIN 100 MG CAPSULE (FP) PO ONE (23:45)
[2018-08-27] MEDS: HEPARIN NA (PORCINE) 5,000 UNITS/ML 1ML VIAL SQ SCH ×2 (00:01→10:00)
[2018-08-27] MEDS ORDERED: ACETAMINOPHEN 325 MG TABLET (FP) ONE (02:10)
[2018-08-27 08:24] VITALS: BMI 26.6
--- NOTE | 2018-08-27 08:58 | CON.CARD ---
Consult Consult Specialty:: Cardiology Referred by:: Eboni Sorto MD Reason for Consultation:: Chest pain - History of Present Illness Chief Complaint: Chest pain History of Present Illness: 73 year old male with a past medical history of HTN, HLD, and gout presented for squeezing somewhat pleuritic 10/10 right-sided non-exertional chest pain radiating up neck. He took tums, water, and his HTN medication which did not help. He notes that he has had this pain in the past with the last episode being 1 month ago but not as severe. He denies associated sxs of dyspnea, near or true syncope, palpitations, orthopnea, PND or LE edema. Allergies: aspirin, clindamycin Social history: Patient denies alcohol, drug, and tobacco use. PCP: Lauren Lucas - History Source History Provided By: Patient Limitations to Obtaining History: No Limitations - Past Medical History Cardio/Vascular: Yes: HTN, Hyperlipdemia - Alcohol/Substance Use Hx Alcohol Use: No - Smoking History Smoking history: Smoker current status UNK Have you smoked in the past 12 months: No Aproximately how many cigarettes per day: 0 If you are a former smoker, when did you quit?: 50yrs ago Home Medications - Allergies Allergies/Adverse Reactions: Allergies Allergy/AdvReac Type Severity Reaction Status Date / Time aspirin Allergy Verified 08/26/18 07:42 clindamycin Allergy Verified 08/26/18 07:42 - Home Medications Home Medications: Ambulatory Orders Rosuvastatin Calcium [Crestor] 10 mg PO HS 07/13/16 Review of Systems - Review of Systems Cardiovascular: reports: Chest Pain - Risk Factors Known Risk Factors: Yes: Hypercholesterolemia, Hypertension Vital Signs: Vital Signs Temperature 97.6 F 08/27/18 04:10 Pulse Rate 74 08/27/18 04:10 Respiratory Rate 20 08/27/18 04:10 Blood Pressure 143/74 08/27/18 04:10 O2 Sat by Pulse Oximetry (%) 97 08/27/18 04:10 Constitutional: Yes: No Distress, Calm Neck: Yes: Supple Respiratory: Yes: Regular, CTA Bilaterally Gastrointestinal: Yes: Normal Bowel Sounds, Soft Cardiovascular: Yes: Regular Rate and Rhythm JVD: No Carotid Bruit: No Heart Sounds: Yes: S1, S2 Edema: No - Other Data Labs, Other Data: CBC, BMP 08/26/18 09:24 08/26/18 09:28 INR, PTT INR Cancelled 08/26/18 08:25 Troponin, BNP 08/26/18 08/26/18 08/26/18 08:25 09:28 19:45 Troponin I Cancelled < 0.02 < 0.02 Troponin, BNP 08/26/18 08/26/18 08/26/18 08:25 09:28 19:45 Troponin I Cancelled < 0.02 < 0.02 NSR LAE, LAD Echo: Pending Ejection Fraction %: LVEF > or = 40 % Imaging - Results Chest X-ray: Report Reviewed (NAD) Cat Scan: Report Reviewed (Chest CTA: No PE, bibasliar scarring R>L) Problem List - Problems (1) Chest pain Code(s): R07.9 - CHEST PAIN, UNSPECIFIED Qualifiers: Chest pain type: unspecified Qualified Code(s): R07.9 - Chest pain, unspecified (2) HLD (hyperlipidemia) Code(s): E78.5 - HYPERLIPIDEMIA, UNSPECIFIED Qualifiers: Hyperlipidemia type: pure hypercholesterolemia Qualified Code(s): E78.00 - Pure hypercholesterolemia, unspecified; E78.0 - Pure hypercholesterolemia (3) HTN (hypertension) Code(s): I10 - ESSENTIAL (PRIMARY) HYPERTENSION Qualifiers: Hypertension type: essential hypertension Qualified Code(s): I10 - Essential (primary) hypertension Assessment/Plan 1. Chest pain syndrome ruled out for PE with need to exclude CAD 2. HTN 3. Hyperlipidemia 4. Gout 5. CKD 6. ASA allergy P:1. Ruled out for [place], check lipid panel, TSH, monitor renal fxn 2. Check echo and nuclear stress testing 3. Further recommendations to follow pending above study results 4. Thank you for consultative opportunity
--- NOTE | 2018-08-27 15:52 | ECHO ---
Name: IRA CARTAGENA Exam:Adult Echocardiogram Study Date: 08/27/2018 11:32 AM Age: 73 yrs Reason For Study: chest pain Height: 71 in Weight: 191 lb BSA: 2.1 m2 MMode/2D Measurements & Calculations IVSd: 1.2 cm Ao root diam: 3.5 cm LVIDd: 4.5 cm LA dimension: 3.0 cm LVIDs: 2.6 cm ACS: 2.0 cm LVPWd: 1.1 cm IVSs: 1.5 cm LVPWs: 1.4 cm EDV(Teich): 90.7 ml ESV(Teich): 24.4 ml Doppler Measurements & Calculations MV E max raghu: 52.3 cm/sec Ao V2 max: 86.0 cm/sec MV A max raghu: 95.3 cm/sec Ao max P.0 mmHg MV E/A: 0.55 Ao V2 mean: 73.2 cm/sec Ao mean P.2 mmHg Ao V2 VTI: 17.0 cm Med Peak E' Raghu: 4.6 cm/sec Med E/e': 11.4 Lat Peak E' Raghu: 5.0 cm/sec Lat E/e': 10.5 Procedure A complete two-dimensional transthoracic echocardiogram was performed (2D, M-mode, Doppler and color flow Doppler). Left Ventricle The left ventricular size, thickness and function are normal. The left ventricular ejection fraction is normal. Ejection Fraction = 55-60%. No regional wall motion abnormalities noted. Right Ventricle The right ventricle is normal in size and function. Atria Normal left and right atrial size and function. Mitral Valve There is no mitral regurgitation noted. Tricuspid Valve There is trace tricuspid regurgitation. There was insufficient TR detected to calculate RV systolic p ressure. Aortic Valve The aortic valve is trileaflet. No hemodynamically significant valvular aortic stenosis. No aortic regurgitation is present. Pulmonic Valve There is no pulmonic valvular regurgitation. Great Vessels The aortic root is normal size. Pericardium/Pleura There is no pericardial effusion. Interpretation Summary The left ventricular size, thickness and function are normal The right ventricle is normal in size and function. There is trace tricuspid regurgitation. MD Devendra Duque 08/27/2018 03:51 PM
--- NOTE | 2018-08-27 16:36 | DS ---
Physical Examination Vital Signs: Vital Signs Temperature 98.2 F 08/27/18 14:15 Pulse Rate 98 H 08/27/18 14:15 Respiratory Rate 20 08/27/18 14:15 Blood Pressure 123/80 08/27/18 14:15 O2 Sat by Pulse Oximetry (%) 97 08/27/18 12:30 Constitutional: Yes: No Distress HENT: Yes: Atraumatic Neck: Yes: Supple Cardiovascular: Yes: Regular Rate and Rhythm Respiratory: Yes: CTA Bilaterally Gastrointestinal: Yes: Normal Bowel Sounds Extremities: Yes: WNL Edema: No Peripheral Pulses WNL: Yes Neurological: Yes: Alert, Oriented Labs: CBC, BMP 08/26/18 09:24 08/26/18 09:28 Discharge Summary Reason For Visit: CHEST PAIN Current Active Problems Chest pain (Acute) HLD (hyperlipidemia) (Acute) HTN (hypertension) (Acute) Condition: Stable - Instructions Diet, Activity, Other Instructions: see cardiology for further testing Referrals: Lauren Cisneros [Primary Care Provider] - Dagoberto Cao MD [Staff Physician] - - Home Medications Comprehensive Discharge Medication List: Ambulatory Orders Rosuvastatin Calcium [Crestor] 10 mg PO HS 07/13/16 ne home fu cardiology as out patient
[2018-08-27 20:04] VITALS: BP 116/80; PULSE 97; TEMP 98
== END 2018-08-27 18:24 | disposition home or self-care (01) ==
LOC: JER 07:21 → JERBED 15:12 → J4W 08-27 05:23
PROVIDERS: ADMIT Internal Medicine; ATTEND Internal Medicine
PROC: 3E033GC Introduction of Other Therapeutic Substance into Peripheral Vein, Percutaneous Approach (ICD-10-PCS; principal; 2018-08-26)
DX: R07.9 Chest pain, unspecified (principal); I10 Essential (primary) hypertension; E78.5 Hyperlipidemia, unspecified; M10.9 Gout, unspecified; Z88.6 Allergy status to analgesic agent; Z88.1 Allergy status to other antibiotic agents
CPT/HCPCS: 36415; 71045-TC-FY; 71275-TC; 78452-TC; 80053; 82550; 82553; 84484; 85025; 93005; 93010; 93017; 93306-TC; 96365; 99285-25; A9502; G0378; J1644

== ENCOUNTER 2019-02-03 10:27 | Emergency (ER) | payer OTHER ==
[2019-02-03 10:35] VITALS: BP 143/91; PULSE 89; BMI 26.4
--- NOTE | 2019-02-03 11:30 | PDOC ---
History of Present Illness - General Chief Complaint: Injury Stated Complaint: RT FOOT INJURY Time Seen by Provider: 02/03/19 10:56 History Source: Patient Exam Limitations: No Limitations - History of Present Illness Initial Comments: 02/03/19 11:20 Patient is a 73 year old male with pmd of idipathic neuropathy, HTN, and increase cholesterol, no significant surgical history presents with pain and swelling to right foot since yesterday. Patient reports no new injuries , states pain is worse with weight bearing. Reports past history of gout. Occurred: reports: yesterday Severity: Yes: moderate Lower Extremity Pain Location: right: foot Method of Injury: Yes: unknown Modifying Factors: improves with: immobilization, rest Lower Ext. Injury Location - Specific Injury Location Foot: right foot soft tissue tenderness, right foot swelling (lateral mid foot sole of branding machine tender, erythematous, callus) Extremity Pain Location - Extremity Pain Location Extremity Pain Locations: right: foot Past History - Travel Traveled outside of the country in the last 30 days: No Close contact w/someone who was outside of country & ill: No - Past Medical History Allergies/Adverse Reactions: Allergies Allergy/AdvReac Type Severity Reaction Status Date / Time aspirin Allergy Verified 02/03/19 10:29 clindamycin Allergy Verified 02/03/19 10:29 Home Medications: Ambulatory Orders Acetaminophen W/ Codeine #3 [Tylenol # 3 -] 1 tab PO Q6H #8 tablet MDD 4 Colchicine [Colcrys] 0.6 mg PO DAILY #20 tablet 02/03/19 COPD: No HTN: Yes Hypercholesterolemia: Yes - Surgical History Cardiac Surgery: No Gastric Stapling: No Neurologic Surgery: No - Immunization History Td Vaccination: No TDAP Vaccination: No Immunization Up to Date: Yes - Suicide/Smoking/Psychosocial Hx Smoking Status: No Smoking History: Former smoker Have you smoked in the past 12 months: No Number of Cigarettes Smoked Daily: 0 If you are a former smoker, when did you quit?: 50yrs Information on smoking cessation initiated: Yes Hx Alcohol Use: No Drug/Substance Use Hx: No Substance Use Type: None Review of Systems - Review of Systems Able to Perform ROS?: Yes Is the patient limited [place]ian proficient: No Constitutional: No: Chills, Fever, Weakness HEENTM: No: Nose Congestion, Throat Swelling Respiratory: No: Orthopnea, Shortness of Breath, Wheezing Cardiac (ROS): No: Edema, Lightheadedness ABD/GI: No: Poor Appetite : No: Dysuria, Incontinence Musculoskeletal: No: Joint Pain, Muscle Weakness Integumentary: Yes: Erythema. No: Bruising Neurological: No: Numbness, Paresthesia *Physical Exam - Vital Signs Last Vital Signs Temp Pulse Resp BP Pulse Ox 89 16 143/91 98 02/03/19 10:30 02/03/19 10:30 02/03/19 10:30 02/03/19 10:30 - Physical Exam General Appearance: Yes: Nourished, Appropriately Dressed HEENT: positive: TMs Normal, Pharynx Normal Neck: positive: Supple. negative: Carotid bruit, Lymphadenopathy (R) Respiratory/Chest: positive: Lungs Clear Cardiovascular: positive: Regular Rhythm, Regular Rate Neurologic: positive: Fully Oriented, Alert, Normal Mood/Affect, Normal Response , Motor Strength 10/25 ED Treatment Course - LABORATORY CBC & Chemistry Diagram: 02/03/19 11:42 02/03/19 11:42 - RADIOLOGY Radiology Studies Ordered: Category Date Time Status ANKLE & FOOT-RIGHT* [RAD] Stat Radiology 02/03/19 11:11 Ordered Medical Decision Making - Medical Decision Making 02/03/19 11:33 Patient is a 73 year old male with pmd of idipathic neuropathy, HTN, and increase cholesterol, no significant surgical history presents with pain and swelling to right foot since yesterday Plan: uric acid, cbc, chem 7 ordered xray ordered 02/03/19 19:58 Uric acid 8.1 bun and creat elevated Rx: colcichine : dose started in emergency room tylenol #3 patient informed to follow up with primary physician regarding elevated bun and creatnine, creatning tends to be elevated and potassium in normal at present. Patient presents no complaints such as urinary, flank or retention today. d/c home 02/03/19 20:00 *DC/Admit/Observation/Transfer Diagnosis at time of Disposition: Gout attack Qualifiers: Gout site: foot Gout etiology: unspecified cause Laterality: right Qualified Code(s): M10.9 - Gout, unspecified - Discharge Dispostion Disposition: HOME Condition at time of disposition: Good Decision to Admit order: No - Prescriptions Prescriptions: Acetaminophen W/ Codeine #3 [Tylenol # 3 -] 1 tab PO Q6H #8 tablet MDD 4 Colchicine [Colcrys] 0.6 mg PO DAILY #20 tablet - Referrals Referrals: Lauren Cisneros [Primary Care Provider] - - Patient Instructions Printed Discharge Instructions: DI for Gout Additional Instructions: Please call doctor for follow up appointment to follow up on lab results for BUn and creatnine Take medication as prescribed. REturn for worsening symptoms - Post Discharge Activity Forms/Work/School Notes: Back to Work
[2019-02-03 13:08] LABS: BASO % 0.4 % (0-2.0); EOS % 1.4 % (0-4.5); HEMATOCRIT 44.3 % (35.4-49); LYMPH % 34.9 % (8-40); MCH 29.5 pg (25.7-33.7); MCHC 33.8 g/dl (32.0-35.9); MEAN CELL VOLUME 87.4 fl (80-96); MEAN PLT VOLUME 7.9 fl (7.5-11.1); MONO % 10.6 % (3.8-10.2); NEUT % 52.7 % (42.8-82.8); PLATELET COUNT 172 K/MM3 (134-434); RBC 5.07 M/mm3 (4.00-5.60); RDW 13.8 % (11.9-15.9); WHITE BLOOD COUNT 6.4 K/mm3 (4.0-10.0)
[2019-02-03 13:20] LABS: ALBUMIN 3.9 g/dl (3.4-5.0); BILIRUBIN,TOTAL 0.5 mg/dL (0.2-1); BLOOD UREA NITROGEN 21.9 mg/dL (7-18); CALCIUM 9.2 mg/dL (8.5-10.1); CREATININE 1.5 mg/dL (0.55-1.3); POTASSIUM 4.2 mmol/L (3.5-5.1); TOT PROT 7.5 g/dl (6.4-8.2)
[2019-02-03] MEDS ORDERED: COLCHICINE 0.6 MG CAP PO ONE (13:53)
[2019-02-03] MEDS ORDERED: COLCHICINE 0.6 MG CAP ONE (13:55)
== END 2019-02-03 15:04 | disposition home or self-care (01) ==
LOC: JERFT 10:27
DX: M10.9 Gout, unspecified (principal); I10 Essential (primary) hypertension; E78.00 Pure hypercholesterolemia, unspecified; Z87.891 Personal history of nicotine dependence
CPT/HCPCS: 36415; 73610-TC-RT-FY; 73630-TC-RT-FY; 80053; 84550; 85025; 99281-25

== ENCOUNTER 2019-12-15 11:03 | Emergency (ER) | payer OTHER ==
--- NOTE | 2019-12-15 11:14 | PDOC ---
Rapid Medical Evaluation Time Seen by Provider: 12/15/19 11:11 Medical Evaluation: Allergies Allergy/AdvReac Type Severity Reaction Status Date / Time aspirin Allergy Verified 12/15/19 11:11 clindamycin Allergy Verified 12/15/19 11:11 12/15/19 11:12 CC: feels there is something in his thraot on the rt side since yesterday, tried drinking fluids, alturas, garlic, no improvement, slept through the night Exam: speaking full sentences, vss, Plan: soft tissue neck xray 12/15/19 11:15 Discharge Disposition - Diagnosis Discomfort of neck - Referrals - Patient Instructions - Post Discharge Activity
[2019-12-15 11:17] VITALS: BP 128/75; PULSE 97; TEMP 98.7; BMI 25.7
--- NOTE | 2019-12-15 12:39 | PDOC ---
History of Present Illness - General Chief Complaint: Sore Throat Stated Complaint: SORE THROAT Time Seen by Provider: 12/15/19 11:11 History Source: Patient Exam Limitations: No Limitations Past History - Travel History Traveled outside of the country in the last 30 days: No Close contact w/someone who was outside of country & ill: No - Medical History Allergies/Adverse Reactions: Allergies Allergy/AdvReac Type Severity Reaction Status Date / Time aspirin Allergy Verified 12/15/19 11:11 clindamycin Allergy Verified 12/15/19 11:11 Home Medications: Ambulatory Orders Acetaminophen W/ Codeine #3 [Tylenol # 3 -] 1 tab PO Q6H #8 tablet MDD 4 Colchicine [Colcrys] 0.6 mg PO DAILY #20 tablet 02/03/19 Methylprednisolone [Medrol Dose Vidal] 4 mg PO ASDIR #21 tablet 12/15/19 COPD: No HTN: Yes Hypercholesterolemia: Yes - Surgical History Cardiac Surgery: No Gastric Stapling: No Neurologic Surgery: No - Immunization History Td Vaccination: No TDAP Vaccination: No Immunization Up to Date: Yes - Psycho-Social/Smoking History Smoking Status: No Smoking History: Never smoked Have you smoked in the past 12 months: No Number of Cigarettes Smoked Daily: 0 If you are a former smoker, when did you quit?: 50yrs - Substance Abuse Hx (Audit-C & DAST Scrn) How often the patient has a drink containing alcohol: Never Score: In Men: 4 or > Positive; In Women: 3 or > Positive: 0 Screen Result (Pos requires Nsg. Audit-10AR): Negative In the last yr the pt used illegal drug/Rx for NonMed reason: No Score: Yes response is considered Positive: 0 Screen Result (Positive result requires Nsg. DAST-10): Negative Review of Systems - Review of Systems Able to Perform ROS?: Yes Comments:: 12/15/19 12:41 CONSTITUTIONAL: Absent: fever, chills, diaphoresis, generalized weakness, malaise, loss of appetite HEENT: Present: Throat discomfort, difficulty swallowing absent: rhinorrhea, nasal congestion, throat pain, throat swelling, difficulty swallowing, mouth swelling, ear pain, eye pain, visual Changes CARDIOVASCULAR: Absent: chest pain, loss of consciousness, palpitations, irregular heart rate, peripheral edema RESPIRATORY: Absent: cough, shortness of breath, dyspnea with exertion, orthopnea, wheezing, stridor, hemoptysis GASTROINTESTINAL: Absent: abdominal pain, abdominal distension, nausea, vomiting, diarrhea, constipation, melena, hematochezia GENITOURINARY: Absent: dysuria, frequency, urgency, hesitancy, hematuria, flank pain, genital pain MUSCULOSKELETAL: Absent: myalgia, arthralgia, joint swelling SKIN: Absent: rash, itching, pallor HEMATOLOGIC/IMMUNOLOGIC: Absent: easy bleeding, easy bruising, lymphadenopathy, frequent infections ENDOCRINE: Absent: unexplained weight gain, unexplained weight loss, heat intolerance, cold intolerance NEUROLOGIC: Absent: headache, focal weakness or paresthesias, dizziness, unsteady gait, seizure, mental status changes, bladder or bowel incontinence PSYCHIATRIC: Absent: anxiety, depression, suicidal or homicidal ideation, hallucinations. Is the patient limited [place]an proficient: No *Physical Exam - Vital Signs Last Vital Signs Temp Pulse Resp BP Pulse Ox 98.7 F 97 H 18 128/75 100 12/15/19 11:11 12/15/19 11:11 12/15/19 11:11 12/15/19 11:11 12/15/19 11:11 - Physical Exam 12/15/19 14:34 GENERAL: The patient is awake, alert, and fully oriented, in no acute distress. HEAD: Normal with no signs of trauma. EYES: Pupils equal, round and reactive to light, extraocular movements intact, sclera anicteric, conjunctiva clear. HEENT: No nasal congestion or rhinorrhea. No sinus Tenderness. Mucous membranes are moist. No tonsillar erythema, exudate or edema. Uvula is midline. No TM bulging, dullness or erythema EXTREMITIES: Normal range of motion, no edema. NEUROLOGICAL: Normal speech, normal gait. PSYCH: Normal mood, normal affect. SKIN: Warm, Dry, normal turgor, no rashes or lesions noted. ED Treatment Course - RADIOLOGY Radiology Studies Ordered: Category Date Time Status SOFT TISSUE NECK CT W/O CONTR [CT] Stat CT Scan 12/15/19 12:14 Taken Medical Decision Making - Medical Decision Making 12/15/19 15:35 Patient is a 74-year-old male who presents to the ER today with difficulty swallowing and throat discomfort. He states that his symptoms started 2 days ago. He states that it hurts to swallow food however he had breakfast this morning and was able to keep it down. He is swallowing his own secretions. He is concerned he may have coronavirus. He states that he feels something in the back of his throat. Denies fevers, chills, change in voice, inability to swallow own secretions. A/P: Throat discomfort On exam the throat is nonerythematous without exudate or edema. No obvious obstruction. No stridor. Rapid strep is negative. CT was obtained to rule out epiglottitis or airway obstruction. CT is otherwise benign. COVID swab sent. Likely a viral illness. Steroids given for symptomatic relief. Discharged home with prescription for steroids and ENT follow-up I discussed the physical exam findings, ancillary test results and final diagnoses with the patient. I answered all of the patient's questions. The patient was satisfied with the care received and felt comfortable with the discharge plan and treatment plan. The Patient agrees to follow up with the primary care physician/specialist within 24-72 hours. Return precautions were given. Discharge - Discharge Information Problems reviewed: Yes Clinical Impression/Diagnosis: Throat discomfort Condition: Stable Disposition: HOME - Admission No - Additional Discharge Information Prescriptions: Methylprednisolone [Medrol Dose Vidal] 4 mg PO ASDIR #21 tablet - Follow up/Referral Referrals: Lauren Cisneros [Primary Care Provider] - Antoni Quinones MD [Staff Physician] - - Patient Discharge Instructions Patient Printed Discharge Instructions: DI for Viral Pharyngitis Additional Instructions: You were seen for your throat discomfort today. Your CAT scan did not show any acute pathology. Your x-ray did show some possible narrowing of the windpipe which we will treat as a viral infection. Please continue the steroids tomorrow as directed. You will receive a phone call regarding your COVID test within 24 to 48 hours. Continue to drink warm tea to help with your symptoms. Follow-up with ENT in a week if your symptoms have not improved. A referral has been provided to you. Return to the ER sooner if you cannot swallow, cannot swallow your own secretions, you develop fevers, if your voice changes or if you have any changes in your symptoms. - Post Discharge Activity Work/Back to School Note: Back to Work
[2019-12-15] MEDS ORDERED: DEXAMETHASONE LIQUID 0.5 MG/5 ML PO ONE (14:27)
[2019-12-15] MEDS ORDERED: DEXAMETHASONE SOD PHOSPHATE 10 MG/1 ML VIAL ONE (14:30)
== END 2019-12-15 14:39 | disposition home or self-care (01) ==
LOC: JER 11:03 → JERFT 11:03
DX: R07.0 Pain in throat (principal)
CPT/HCPCS: 70360-TC-FY; 70490-TC; 87070; 87880; 99284-25; U0003

== ENCOUNTER 2020-01-05 05:41 | Inpatient (IN) | payer OTHER ==
[2020-01-05] MEDS ORDERED: ACETAMINOPHEN 1000 MG/100 ML VIAL (NON FORMULARY) IVPB ONE (07:27)
[2020-01-05 08:34] LABS: PH,URINE 6.5 (5.0-8.0); URINE APPEARANCE CLEAR; URINE BILIRUBIN NEGATIVE (NEGATIVE); URINE COLOR YELLOW; URINE GLUCOSE (UA) NEGATIVE (NEGATIVE); URINE KETONE NEGATIVE (NEGATIVE); URINE LEUK ESTERASE NEGATIVE (NEGATIVE); URINE NITRITE NEGATIVE (NEGATIVE); URINE PROTEIN NEGATIVE (NEGATIVE); URINE UROBILINOGEN 0.2 mg/dL (0.2-1.0)
[2020-01-05] MEDS ORDERED: ACETAMINOPHEN INJECTION 100 ML IVPB ONE (08:41)
[2020-01-05 08:49] LABS: BASO % 0.6 % (0-2.0); EOS % 0.6 % (0-4.5); HEMATOCRIT 42.8 % (35.4-49); HEMOGLOBIN 14.1 GM/dL (11.7-16.9); LYMPH % 21.1 % (8-40); MCH 28.6 pg (25.7-33.7); MCHC 32.9 g/dl (32.0-35.9); MEAN CELL VOLUME 86.9 fl (80-96); MEAN PLT VOLUME 7.9 fl (7.5-11.1); MONO % 10.1 % (3.8-10.2); NEUT % 67.6 % (42.8-82.8); PLATELET COUNT 154 K/MM3 (134-434); RBC 4.93 M/mm3 (4.00-5.60); RDW 14.1 % (11.9-15.9); WHITE BLOOD COUNT 8.9 K/mm3 (4.0-10.0)
[2020-01-05 08:57] LABS: INR 1.07 (0.83-1.09); PROTHROMBIN TIME (PATIENT) 12.6 SEC (9.7-13.0)
[2020-01-05 09:14] LABS: ALBUMIN 3.2 g/dl (3.4-5.0); BILIRUBIN,TOTAL 0.6 mg/dL (0.2-1); CALCIUM 8.9 mg/dL (8.5-10.1); CREATININE 1.3 mg/dL (0.55-1.3); POTASSIUM 5.1 mmol/L (3.5-5.1); TOT PROT 7.4 g/dl (6.4-8.2)
--- NOTE | 2020-01-05 09:47 | PDOC ---
Documentation entered by Shawn Davis SCRIBE, acting as scribe for Jordan Walker MD. Jordan Walker MD: This documentation has been prepared by the Madhuri burrows inShawn SCRIBE, under my direction and personally reviewed by me in its entirety. I confirm that the documentation accurately reflects all work, treatment, procedures, and medical decision making performed by me. History of Present Illness - General Chief Complaint: Pain, Acute Stated Complaint: PAIN Time Seen by Provider: 01/05/20 07:12 History Source: Patient Exam Limitations: No Limitations - History of Present Illness Initial Comments: 01/05/20 07:48 Patient is a 74-year-old male with a PMH of pleurisy, gout (baseline pain in feet), and idiopathic neuropathy, who presents to the ED with constant right flank pain x3 days. The patient reports pain radiates to his neck with motion and is worsened with deep inspiration, movement and lying flat on his back.The patient also endorses pain is similar to an episode of pleurisy he had years ago. The patient denies lifting heavy objects. Pt reports chronic lower back pain and chronic BLE pain due to his idiopathic neuropathy Pt denies any recent travel. The patient denies chest pain. Denies fever, chills and/or any GI symptoms. Denies any symptoms. Denies any other symptoms. Allergies: aspirin, clindamycin Social Hx: No alcohol or drug use. PCP: Dr Lauren Cisneros ([facility]) Past History - Medical History Allergies/Adverse Reactions: Allergies Allergy/AdvReac Type Severity Reaction Status Date / Time aspirin Allergy Verified 01/05/20 06:13 clindamycin Allergy Verified 01/05/20 06:13 Home Medications: Ambulatory Orders Acetaminophen W/ Codeine #3 [Tylenol # 3 -] 1 tab PO Q6H #8 tablet MDD 4 02/03/19 Colchicine [Colcrys] 0.6 mg PO DAILY #20 tablet 02/03/19 Methylprednisolone [Medrol Dose Vidal] 4 mg PO ASDIR #21 tablet 12/15/19 COPD: No HTN: Yes Hypercholesterolemia: Yes - Surgical History Cardiac Surgery: No Gastric Stapling: No Neurologic Surgery: No - Immunization History Td Vaccination: No TDAP Vaccination: No Immunization Up to Date: Yes - Psycho-Social/Smoking History Smoking Status: No Smoking History: Never smoked Have you smoked in the past 12 months: No Number of Cigarettes Smoked Daily: 0 If you are a former smoker, when did you quit?: 50yrs - Substance Abuse Hx (Audit-C & DAST Scrn) How often the patient has a drink containing alcohol: Never Score: In Men: 4 or > Positive; In Women: 3 or > Positive: 0 Screen Result (Pos requires Nsg. Audit-10AR): Negative In the last yr the pt used illegal drug/Rx for NonMed reason: No Score: Yes response is considered Positive: 0 Screen Result (Positive result requires Nsg. DAST-10): Negative Review of Systems - Review of Systems Able to Perform ROS?: Yes Comments:: 01/05/20 07:49 CONSTITUTIONAL: No fever, no chills, no fatigue EYES: No visual changes ENT: No ear pain, no sore throat CARDIOVASCULAR: No chest pain, no palpitations RESPIRATORY: No cough. +SOB GI: + right flank pain no nausea, no vomiting, no constipation, no diarrhea GENITOURINARY: No dysuria, no frequency, no hematuria MUSCULOSKELETAL:+chronic back pain, +BLE pain SKIN: No rash NEURO: No headache All Other Systems: Reviewed and Negative *Physical Exam - Vital Signs Last Vital Signs Temp Pulse Resp BP Pulse Ox 99.8 F H 105 H 20 162/98 98 01/05/20 06:05 01/05/20 06:05 01/05/20 06:05 01/05/20 06:05 01/05/20 06:05 - Physical Exam 01/05/20 09:44 EXAMINATION CONSTITUTIONAL:Awake, alert, well nourished; in mild distress HEAD: Normocephalic; atraumatic EYES: PERRL; EOM intact ENMT: External appears normal; normal oropharynx NECK: Supple; non-tender; no cervical lymphadenopathy CARD: Normal S1, S2; no murmurs, rubs, or gallops RESP: Normal chest excursion with respiration; breath sounds clear and equal bilaterally; no wheezes, rhonchi, or rales BACK: no obvious deformaty; + t11-T12 midline ttp; + r. cva ttp ABD: Soft, non-distended; non-tender; no palpable organomegaly, no palpable hernias EXT: Normal ROM in all four extremities; non-tender to palpation; distal pulses intact SKIN: Warm, dry, no rash NEURO: No focal neurological deficiencies. ED Treatment Course - LABORATORY CBC & Chemistry Diagram: 01/05/20 08:30 01/05/20 08:30 Medical Decision Making - Medical Decision Making 01/05/20 09:46 Patient is 74-year-old male who presents with atraumatic right flank, right rib cage and right upper quadrant pain for the past 3 days. Differential diagnosis includes hepatitis versus cholecystitis versus cholelithiasis versus right lower lobe pneumonia versus nephrolithiasis versus pyelonephritis. Will obtain CBC/CMP/UA/chest x-ray/right upper quadrant ultrasound. Will consider CT spiral of abdomen pelvis. Will administer IV Tylenol for pain. Will reassess. 01/05/20 10:[address] of abdomen pelvis reveals no evidence of acute intra-abdominal pathology, right lower lobe infiltrate and atelectasis are noted. Will obtain blood cultures. Will administer to ceftriaxone and Zithromax for coverage of CAP. Will admit. Discharge - Discharge Information Problems reviewed: Yes Clinical Impression/Diagnosis: Pneumonia Qualifiers: Pneumonia type: due to unspecified organism Laterality: right Lung location: lower lobe of lung Qualified Code(s): J18.9 - Pneumonia, unspecified organism Condition: Fair - Admission Yes - Follow up/Referral Referrals: Lauren Cisneros [Primary Care Provider] - - Patient Discharge Instructions - Post Discharge Activity
[2020-01-05] MEDS ORDERED: CEFTRIAXONE 1,000 MG in DEXTROSE 5%-WATER - 50 ML IVPB ONE (10:36)
[2020-01-05] MEDS ORDERED: AZITHROMYCIN IVPB 500 MG in DEXTROSE 5%-WATER - 250 ML IVPB ONE (10:36)
[2020-01-05] MEDS ORDERED: AZITHROMYCIN IVPB 500 MG/250 ML BAG IVPB ONE (11:11)
[2020-01-05] MEDS ORDERED: MORPHINE SULFATE 2 MG/ML VIAL ONE (11:11)
[2020-01-05] MEDS ORDERED: CEFTRIAXONE 1 GM/50 ML BAG ONE (11:11)
[2020-01-05] MEDS ORDERED: morphine CARPU-JECT 2 MG/1 ML DISP.SYRIN IVPUSH ONE (11:15)
--- NOTE | 2020-01-05 11:20 | PN ---
Teaching Attending Note Name of Resident: Paco Chang ATTENDING PHYSICIAN STATEMENT I saw and evaluated the patient. I reviewed the resident's note and discussed the case with the resident. I agree with the resident's findings and plan as documented. SUBJECTIVE: Elderly man looks comfortable complained of right lower chest pain anteriorly OBJECTIVE: Vital Signs Temperature 99.8 F H 01/05/20 06:05 Pulse Rate 105 H 01/05/20 06:05 Respiratory Rate 20 01/05/20 06:05 Blood Pressure 162/98 01/05/20 06:05 O2 Sat by Pulse Oximetry (%) 98 01/05/20 06:05 General: Elderly man, comfortable, not in distress HEENT mucous membranes moist, no anemia, no jaundice, PERRLA, no nystagmus Neck: No JVD, supple, no bruit, thyroid palpably normal, normal carotid pulsations. Chest: mild tender right lower chest no eruptions, vesicles or erythema, clear to auscultation bilaterally CVS: S1-S2 regular no murmur/gallop/rub Abdomen: Nondistended, soft, bowel sounds present. 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: AO X3 , no gross motor sensory deficit CBC,CMP WBC 8.9 K/mm3 (4.0-10.0) 01/05/20 08:30 RBC 4.93 M/mm3 (4.00-5.60) 01/05/20 08:30 Hgb 14.1 GM/dL (11.7-16.9) 01/05/20 08:30 Hct 42.8 % (35.4-49) 01/05/20 08:30 MCV 86.9 fl (80-96) 01/05/20 08:30 MCH 28.6 pg (25.7-33.7) 01/05/20 08:30 MCHC 32.9 g/dl (32.0-35.9) 01/05/20 08:30 RDW 14.1 % (11.9-15.9) 01/05/20 08:30 Plt Count 154 K/MM3 (134-434) 01/05/20 08:30 MPV 7.9 fl (7.5-11.1) 01/05/20 08:30 Absolute Neuts (auto) 6.0 K/mm3 (1.5-8.0) 01/05/20 08:30 Neutrophils % 67.6 % (42.8-82.8) D 01/05/20 08:30 Lymphocytes % 21.1 % (8-40) D 01/05/20 08:30 Monocytes % 10.1 % (3.8-10.2) 01/05/20 08:30 Eosinophils % 0.6 % (0-4.5) 01/05/20 08:30 Basophils % 0.6 % (0-2.0) 01/05/20 08:30 Nucleated RBC % 0 % (0-0) 01/05/20 08:30 Sodium 141 mmol/L (136-145) 01/05/20 08:30 Potassium 5.1 mmol/L (3.5-5.1) 01/05/20 08:30 Chloride 107 mmol/L (98-107) 01/05/20 08:30 Carbon Dioxide 26 mmol/L (21-32) 01/05/20 08:30 Anion Gap 8 MMOL/L (8-16) 01/05/20 08:30 BUN 10.0 mg/dL (7-18) 01/05/20 08:30 Creatinine 1.3 mg/dL (0.55-1.3) 01/05/20 08:30 Est GFR (CKD-EPI)AfAm 62.30 01/05/20 08:30 Est GFR (CKD-EPI)NonAf 53.75 01/05/20 08:30 Random Glucose 113 mg/dL (74-106) H 01/05/20 08:30 Calcium 8.9 mg/dL (8.5-10.1) 01/05/20 08:30 Total Bilirubin 0.6 mg/dL (0.2-1) 01/05/20 08:30 AST 39 U/L (15-37) H 01/05/20 08:30 ALT 36 U/L (13-61) 01/05/20 08:30 Alkaline Phosphatase 132 U/L (45-117) H 01/05/20 08:30 Total Protein 7.4 g/dl (6.4-8.2) 01/05/20 08:30 Albumin 3.2 g/dl (3.4-5.0) L 01/05/20 08:30 Chest x-ray: Blunted right angle CT chest with PE protocol: No pulmonary embolism right lower lobe infiltrate Right upper quadrant ultrasound: Fatty liver EK NSR QTC [address] [place] L[address] -[address]-T changes no previous EKG available for comparison Medication Active Medications Acetaminophen (Tylenol -) 650 mg PO Q6H PRN PRN Reason: PAIN LEVEL 6-10 Enoxaparin Sodium (Lovenox -) 40 mg SQ DAILY ALEX Gabapentin (Neurontin -) 400 mg PO Q8H ALEX Ceftriaxone Sodium 1 gm/ (Dextrose) 50 mls @ 100 mls/hr IVPB DAILY ALEX Azithromycin 250 mg/ Dextrose 250 mls @ 250 mls/hr IVPB DAILY ALEX Ibuprofen (Motrin -) 400 mg PO Q6HPO ALEX Last Admin: 01/05/20 14:07 Dose: 400 mg Documented by: Nortriptyline HCl (Pamelor -) 10 mg PO HS ALEX Tramadol HCl (Ultram -) 50 mg PO Q6H PRN PRN Reason: PAIN LEVEL 6-10 ASSESSMENT AND PLAN: 74-year-old man healthy, history of idiopathic neuritis on gabapentin, gout, hypertension and dyslipidemia diet controlled, remote history of pleuritis, present with sharp reproducible with breathing and position right lower chest pain, nonradiating, no skin eruptions denies any cough or shortness of breath today pain worsened to 10 /10 came to ED for evaluation, all labs are normal patient is hemodynamically stable, CT chest with PE protocol is negative, CT chest shows right lower lobe infiltrate, patient has no history of exposure to COVID denies any recent traveling, no complaint of fever, shortness of breath or palpitation. Impression: Community-acquired bacterial pneumonia Active issues: 1. Community-acquired bacterial pneumonia: Low pneumonia severity index; will continue ceftriaxone and azithromycin can be switched to p.o. medication once stable, pain control Tylenol 650 mg every 8 hourly and Motrin as needed; observe closely for any eruptions or vesicles. 2. Idiopathic neuritis: Continue home medication including gabapentin 3. History of gout: at present stable continue colchicine 4. Hypercholesteremia: follow-up lipid panel as an outpatient 5. History of hypertension; well-controlled observe clinically DVT prophylaxis Lovenox 40 mg daily Discuss with the resident.
--- NOTE | 2020-01-05 12:07 | EKG ---
Test Reason : Blood Pressure : / mmHG Vent. Rate : 087 BPM Atrial Rate : 087 BPM P-R Int : 160 ms QRS Dur : 084 ms QT Int : 366 ms P-R-T Axes : 058 -43 027 degrees QTc Int : 440 ms NORMAL SINUS RHYTHM LEFT ATRIAL ENLARGEMENT LEFT AXIS DEVIATION SEPTAL INFARCT , AGE UNDETERMINED ABNORMAL ECG Confirmed by MD MARYJANE, MIRYAM ([id number]) on 01/05/2020 12:06:55 PM Referred By: Confirmed By:MIRYAM WESLEY MD
--- NOTE | 2020-01-05 12:12 | HP ---
CHIEF COMPLAINT: Rightupper back pain PCP: Blayne([facility]) HISTORY OF PRESENT ILLNESS: 74M w/ pmh of HTN(not on meds), HLD(not on meds), gout, idiopathic BLE neuropathy presenting to [facility] with complaint of 3d of worsened Right-sided back/flank pain. Sore, cramping Right-sided pain occurred suddenly while laying down to watch TV three days prior. Pain is worse with side-bending and deep breaths. This morning, pain increased to 10 of 10 severity so decided to come to ED. Pain much improved after getting morphine 2mg. Denies fever, cough, sputum production, h/o kidney stones, h/o blood clots(neither peripheral nor PE), recent prolonged travelling, h/o prolonged stasis. Denies weak urinary stream, h/o prostate issues. Has seen a urologist in the past for Erectile Dysfunction. Was seen at [facility] on 12/15/19 for sore throat and was discharged with a Medrol dose pack. Was admitted >10ys prior with "pleurisy", given abx and stayed inpatient at [facility] for ~1 week. Denies h/o COVID. ER course was notable for: (1) Tmax 99.8F, HR 105, BP 162/88 (2) WBC 8.9 (3) CXR: Right-sided fluid and atelectasis w/ blunted Right angle (4) Right-sided Flank pain prompted w/u for GB pathology(US RUQ: fatty liver vs hepatocellular disease) and for renal stone(Spiral CT: neg for nephrlithiasis. Findings of Right base atelectasis/infiltrate, diverticulosis, enlarged and heterogenous prostate(5cm in AP dimension)) (5) ofirmev, ceftriaxone, azithromycin, morphine 2mg Recent Travel: denies PAST MEDICAL HISTORY: as above PAST SURGICAL HISTORY: none Social History: Smoking: smoked 1 pack/wk for 5ys in his early twenties Alcohol: social Drugs: denies Allergies aspirin Allergy (Verified 01/05/20 06:13) -- "nausea" clindamycin Allergy (Verified 01/05/20 06:13) -- swelling of lips, extremities HOME MEDICATIONS: Home Medications Medication Instructions Recorded Acetaminophen W/ Codeine #3 1 tab PO Q6H #8 tablet MDD 4 02/03/19 [Tylenol # 3 -] Colchicine [Colcrys] 0.6 mg PO DAILY #20 tablet 02/03/19 Methylprednisolone [Medrol Dose 4 mg PO ASDIR #21 tablet 12/15/19 Vidal] REVIEW OF SYSTEMS CONSTITUTIONAL: Absent: fever, chills, diaphoresis, generalized weakness, malaise, loss of appetite, weight change HEENT: Absent: rhinorrhea, nasal congestion, throat pain, throat swelling, difficulty swallowing, mouth swelling, ear pain, eye pain, visual changes CARDIOVASCULAR: Absent: chest pain, syncope, palpitations, irregular heart rate, lightheadedness, peripheral edema RESPIRATORY: Right-sided pleuritic pain Absent: cough, shortness of breath, dyspnea with exertion, orthopnea, wheezing, stridor, hemoptysis GASTROINTESTINAL: Absent: abdominal pain, abdominal distension, nausea, vomiting, diarrhea, constipation, melena, hematochezia GENITOURINARY: months of intermittent urinary urgency Absent: dysuria, frequency, hesitancy, hematuria, flank pain, genital pain MUSCULOSKELETAL: Absent: myalgia, arthralgia, joint swelling, back pain, neck pain SKIN: Absent: rash, itching, pallor HEMATOLOGIC/IMMUNOLOGIC: Absent: easy bleeding, easy bruising, lymphadenopathy, frequent infections ENDOCRINE: Absent: unexplained weight gain, unexplained weight loss, heat intolerance, cold intolerance NEUROLOGIC: numbness and shooting pain to the feet b/l Absent: headache, focal weakness or paresthesias, dizziness, unsteady gait, seizure, mental status changes, bladder or bowel incontinence PSYCHIATRIC: Absent: anxiety, depression, suicidal or homicidal ideation, hallucinations. PHYSICAL EXAMINATION Vital Signs - 24 hr 01/05/20 06:05 Temperature 99.8 F H Pulse Rate 105 H Respiratory 20 Rate Blood Pressure 162/98 O2 Sat by Pulse 98 Oximetry (%) GENERAL: Awake, alert, and fully oriented, in no acute distress. HEAD: Normal with no signs of trauma. EYES: sclera anicteric, conjunctiva clear. No lid lag. EARS, NOSE, THROAT: oropharynx clear without exudates. Moist mucous membranes. Missing some teeth NECK: Normal range of motion, supple without lymphadenopathy, JVD, or masses. LUNGS: mild corase BS at the bases bilaterally. No wheezes, and no crackles. No accessory muscle use. Breathing comfortably on RA. Speaking full sentences. Te nderness to percussion of Right posterior ribs HEART: Regular rate and rhythm, normal S1 and S2 without murmur, rub or gallop. ABDOMEN: Soft, nontender, not distended, no guarding, no rebound. MUSCULOSKELETAL: Normal range of motion at all joints. No bony deformities or tenderness. No CVA tenderness. UPPER EXTREMITIES: 2+ pulses, warm, well-perfused. No cyanosis. No clubbing. No peripheral edema. LOWER EXTREMITIES: 2+ pulses, warm, well-perfused. No calf tenderness. No peripheral edema. NEUROLOGICAL: normal speech, moving all extremities spontaneously Laboratory Results - last 24 hr 01/05/20 01/05/20 01/05/20 08:20 08:30 08:30 WBC 8.9 RBC 4.93 Hgb 14.1 Hct 42.8 MCV 86.9 MCH 28.6 MCHC 32.9 RDW 14.1 Plt Count 154 MPV 7.9 Absolute Neuts (auto) 6.0 Neutrophils % 67.6 D Lymphocytes % 21.1 D Monocytes % 10.1 Eosinophils % 0.6 Basophils % 0.6 Nucleated RBC % 0 PT with INR 12.60 INR 1.07 Sodium Potassium Chloride Carbon Dioxide Anion Gap BUN Creatinine Est GFR (CKD-EPI)AfAm Est GFR (CKD-EPI)NonAf Random Glucose Calcium Total Bilirubin AST ALT Alkaline Phosphatase Total Protein Albumin Urine Color Yellow Urine Appearance Clear Urine pH 6.5 Ur Specific [place] 1.011 Urine Protein Negative Urine Glucose (UA) Negative Urine Ketones Negative Urine Blood Negative Urine Nitrite Negative Urine Bilirubin Negative Urine Urobilinogen 0.2 Ur Leukocyte Esterase Negative 01/05/20 08:30 WBC RBC Hgb Hct MCV MCH MCHC RDW Plt Count MPV Absolute Neuts (auto) Neutrophils % Lymphocytes % Monocytes % Eosinophils % Basophils % Nucleated RBC % PT with INR INR Sodium 141 Potassium 5.1 Chloride 107 Carbon Dioxide 26 Anion Gap 8 BUN 10.0 Creatinine 1.3 Est GFR (CKD-EPI)AfAm 62.30 Est GFR (CKD-EPI)NonAf 53.75 Random Glucose 113 H Calcium 8.9 Total Bilirubin 0.6 AST 39 H ALT 36 Alkaline Phosphatase 132 H Total Protein 7.4 Albumin 3.2 L Urine Color Urine Appearance Urine pH Ur Specific [place] Urine Protein Urine Glucose (UA) Urine Ketones Urine Blood Urine Nitrite Urine Bilirubin Urine Urobilinogen Ur Leukocyte Esterase ASSESSMENT/PLAN: 74M w/ pmh of HTN(not on meds), HLD(not on meds), gout, idiopathic BLE neuropathy presenting to [facility] with complaint of 3d of worsened Right-sided back/flank pain. Pain was sudden in onset, and worse with sidebending and deep inspirations. Afebrile, initially tachy but improved HR after pain control, WBC 8.9. Imaging showing R-sided atelectasis vs infiltrate on CT. Admitted for PNA. #pleuritic Right-sided rib pain --possibly 2/2 PNA, possibly atelectasis; less likely PE; nephrolithiasis ruled out > Tmax 99.8F, HR 105, BP 162/88 > WBC 8.9 > COVID --pending > UCX and BCX --pending > Ur Legionella --pending > CXR: Right-sided fluid and atelectasis w/ blunted Right angle > Spiral CT: neg for nephrlithiasis. Findings of Right base atelectasis/infiltrate, diverticulosis, enlarged and heterogenous prostate(5cm in AP dimension) - incentive spirometer - pain mgmt: --ibuprofen lopez, tramdol PRN - abx regimen: --ceftriaxone + azithromycin d1 #incidental finding of enlarged heterogeneous prostate - outpt fu w/ regular Urologist #idiopathic BLE neuropathy - cw home gabapentin #HTN(not on chronic meds) --possibly 2/2 pain - control pain - pt was prescribed Amlodipine 10mg but never picked up Rx - monitor #HLD(not on chronic meds) - fu as outpt #gout - takes colchicine "as needed"(typically once every 6mo FEN - no mIVF - sodium-controlled diet DVT PPX - lovenox Family Medical History Family Hx Cancer: Mother (intestinal cancer) Visit type - Emergency Visit Emergency Visit: Yes ED Registration Date: 01/05/20 Care time: The patient presented to the Emergency Department on the above date and was hospitalized for further evaluation of their emergent condition. - New Patient This patient is new to me today: Yes Date on this admission: 01/05/20 - Critical Care Critical Care patient: No ATTENDING PHYSICIAN STATEMENT I saw and evaluated the patient. I reviewed the resident's note and discussed the case with the resident. I agree with the resident's findings and plan as documented. SUBJECTIVE: OBJECTIVE: ASSESSMENT AND PLAN:
[2020-01-05] MEDS ORDERED: IBUPROFEN 400 MG TABLET (FP) PO ONE (14:01)
[2020-01-05] MEDS: IBUPROFEN 400 MG TABLET (FP) PO SCH ×3 (14:07→23:14)
[2020-01-05] MEDS ORDERED: GABAPENTIN 400 MG CAPSULE PO SCH (14:45)
[2020-01-05] MEDS: traMADol HCL 50 MG TABLET PO PRN ×2 (15:44→23:14)
[2020-01-05] MEDS ORDERED: GABAPENTIN 100 MG CAPSULE ONE ×2 (16:09→20:57)
[2020-01-05] MEDS ORDERED: GABAPENTIN 300 MG CAPSULE ONE ×2 (16:09→20:57)
[2020-01-05] MEDS ORDERED: PT OWN MED DRAWER 7, Y5N ONE (16:10)
[2020-01-05] MEDS: GABAPENTIN 300 MG, GABAPENTIN 100 MG PO SCH ×2 (16:24→21:14)
[2020-01-05] MEDS ORDERED: LIDOCAINE 5% TOPICAL PATCH TP ONE (20:00)
[2020-01-05 20:07] VITALS: BMI 25.8
[2020-01-05] MEDS: LIDOCAINE HCL 5% TOP OINTMENT 50 GM TUBE TP ONE ×2 (21:14→21:26)
[2020-01-05] MEDS: ACETAMINOPHEN 325 MG TABLET (FP) PO PRN (21:26)
[2020-01-05] MEDS: NORTRIPTYLINE HCL 10 MG CAPSULE PO SCH (21:39)
[2020-01-05] MEDS ORDERED: GABAPENTIN 300 MG, GABAPENTIN 100 MG PO SCH (22:00)
[2020-01-06] MEDS ORDERED: GABAPENTIN 100 MG CAPSULE ONE ×3 (06:44→21:06)
[2020-01-06] MEDS ORDERED: GABAPENTIN 300 MG CAPSULE ONE ×3 (06:44→21:06)
[2020-01-06] MEDS: GABAPENTIN 300 MG, GABAPENTIN 100 MG PO SCH ×3 (06:46→21:13)
[2020-01-06] MEDS: IBUPROFEN 400 MG TABLET (FP) PO SCH (06:46)
[2020-01-06] MEDS ORDERED: LIDOCAINE PATCH REMOVAL MC SCH (08:00)
[2020-01-06 08:56] LABS: HEMATOCRIT 38.6 % (35.4-49); HEMOGLOBIN 12.8 GM/dL (11.7-16.9); MCH 28.8 pg (25.7-33.7); MCHC 33.2 g/dl (32.0-35.9); MEAN CELL VOLUME 86.8 fl (80-96); MEAN PLT VOLUME 7.8 fl (7.5-11.1); PLATELET COUNT 142 K/MM3 (134-434); RBC 4.45 M/mm3 (4.00-5.60); RDW 13.7 % (11.9-15.9); WHITE BLOOD COUNT 8.3 K/mm3 (4.0-10.0)
[2020-01-06 09:23] LABS: BLOOD UREA NITROGEN 14.7 mg/dL (7-18); CALCIUM 8.2 mg/dL (8.5-10.1); CREATININE 1.3 mg/dL (0.55-1.3); PHOSPHOROUS 3.5 mg/dL (2.5-4.9); POTASSIUM 3.9 mmol/L (3.5-5.1)
[2020-01-06] MEDS ORDERED: IBUPROFEN 400 MG TABLET (FP) PO PRN (09:27)
[2020-01-06] MEDS ORDERED: cefTRIAXone SODIUM 1 GM VIAL ONE ×2 (09:33→16:36)
[2020-01-06] MEDS ORDERED: DEXTROSE 5%-WATER - 50 ML IVPB ONE ×2 (09:33→16:36)
[2020-01-06] MEDS ORDERED: PT OWN MED DRAWER 7, Y5N ONE ×2 (09:34→13:58)
[2020-01-06] MEDS ORDERED: CEFTRIAXONE 1 GM in DEXTROSE 5%-WATER - 50 ML IVPB SCH (10:00)
[2020-01-06] MEDS ORDERED: AZITHROMYCIN IVPB 250 MG in DEXTROSE 5%-WATER - 250 ML IVPB SCH (10:00)
[2020-01-06] MEDS: ENOXAPARIN NA (PORCINE) 40 MG/0.4 ML DISP.SYRIN SQ SCH (10:56)
[2020-01-06] MEDS: traMADol HCL 50 MG TABLET PO PRN ×2 (10:57→16:45)
--- NOTE | 2020-01-06 13:24 | PN ---
Physical Exam: SUBJECTIVE: Patient seen and examined at bedside this morning, Patient still reporting right sided pain, but with improvement from yesterday. He reported pain with movement, breathing and palpation. Otherwise denies any fevers, chills, headache, dizziness, chest pain, shortness of breath, abdominal pain, diarrhea. OBJECTIVE: Vital Signs Temperature 97.6 F 01/06/20 09:00 Pulse Rate 99 H 01/06/20 09:00 Respiratory Rate 18 01/06/20 09:00 Blood Pressure 127/78 01/06/20 09:00 O2 Sat by Pulse Oximetry (%) 96 01/06/20 09:00 GENERAL: The patient is awake, alert, and fully oriented, in no acute distress. NECK: Full range of motion, supple. LUNGS: Fine crackles on right lower lobe. TTP on right posterior ribs HEART: Regular rate and rhythm, S1, S2 ABDOMEN: Soft, nontender, nondistended, normoactive bowel sounds EXTREMITIES: 2+ pulses, warm, well-perfused, no edema. NEUROLOGICAL: Cranial nerves II through XII grossly intact. Normal speech PSYCH: Normal mood, normal affect. SKIN: Warm, dry, normal turgor Laboratory Results - last 24 hr 01/05/20 01/06/20 01/06/20 11:40 06:00 07:33 WBC 8.3 RBC 4.45 Hgb 12.8 Hct 38.6 MCV 86.8 MCH 28.8 MCHC 33.2 RDW 13.7 Plt Count 142 MPV 7.8 Sodium 138 Potassium 3.9 Chloride 105 Carbon Dioxide 27 Anion Gap 6 L BUN 14.7 Creatinine 1.3 Est GFR (CKD-EPI)AfAm 62.30 Est GFR (CKD-EPI)NonAf 53.75 Random Glucose 117 H Calcium 8.2 L Phosphorus 3.5 Magnesium 2.0 COVID-19 (ERIK) Not detected Active Medications Generic Name Dose Route Start Last Admin Trade Name Freq PRN Reason Stop Dose Admin Acetaminophen 650 mg 01/05/20 12:12 01/05/20 21:26 Tylenol - PO 650 mg Q6H PRN Administration PAIN LEVEL 6-10 Enoxaparin Sodium 40 mg 01/06/20 10:00 01/06/20 10:56 Lovenox - SQ 40 mg DAILY ALEX Administration Gabapentin 300 mg/ Gabapentin 400 mg 01/05/20 16:00 01/06/20 06:46 100 mg PO 400 mg TID ALEX Administration Lidocaine 1 patch 01/07/20 10:00 Lidoderm Patch - TP DAILY ALEX Miscellaneous 1 each 01/06/20 22:00 Lidoderm Patch Removal MC DAILY@2200 ALEX Nortriptyline HCl 10 mg 01/05/20 22:00 01/05/20 21:39 Pamelor - PO 10 mg HS ALEX Administration Pneumococcal 13-Valent Conj Vacc 0.5 ml 01/06/20 10:00 Prevnar 13 Syringe - IM 01/06/20 10:01 .ONCE ONE Tramadol HCl 50 mg 01/05/20 13:39 01/06/20 10:57 Ultram - PO 50 mg Q6H PRN Administration PAIN LEVEL 6-10 ASSESSMENT/PLAN: Patient is a 74M w/ pmh of HTN, HLD, gout, idiopathic BLE neuropathy presenting to ED with complaint of 3d of worsened Right-sided back/flank pain. Pain was sudden in onset, and worse with sidebending and deep inspirations. #Pleuritic Right-sided pain --possibly 2/2 MSK vs rib fx vs PNA, possibly atelectasis; less likely PE; nephrolithiasis ruled out -afebrile, no leukocytosis -covid pending -blood cultures no growth to date -urine legionella/pneumonia pending -CXR: Right-sided fluid and atelectasis w/ blunted Right angle -Chest CT ordered -Ceftriaxone and azithromycin day 2 -pain control with tylenol and tramadol -avoid NSAIDs -incentive spirometry #BPH on CT scan - outpt fu w/ regular Urologist #idiopathic BLE neuropathy - cw home gabapentin #HTN -not on any medications -pain controlled, bp improved -will continue to monitor -may start Amlodipine if with elevated bp #gout - takes colchicine "as needed"(typically once every 6mo) #FEN - not on any standing fluids - electrolytes wnl, routine bmp monitoring - sodium-controlled diet #PPX - lovenox 40mg sq daily #Disposition -full code -med surg Visit type - Emergency Visit Emergency Visit: Yes ED Registration Date: 01/05/20 Care time: The patient presented to the Emergency Department on the above date and was hospitalized for further evaluation of their emergent condition. - New Patient This patient is new to me today: Yes Date on this admission: 01/06/20 - Critical Care Critical Care patient: No ATTENDING PHYSICIAN STATEMENT I saw and evaluated the patient. I reviewed the resident's note and discussed the case with the resident. I agree with the resident's findings and plan as documented. SUBJECTIVE: OBJECTIVE: ASSESSMENT AND PLAN:
[2020-01-06] MEDS ORDERED: PNEUMOC 13-VAL CONJ-DIP CRM/PF 0.5 ML DISP.SYRIN IM ONE (15:00)
[2020-01-06] MEDS: CEFTRIAXONE 1 GM in DEXTROSE 5%-WATER - 50 ML IVPB SCH (16:46)
[2020-01-06] MEDS: AZITHROMYCIN IVPB 250 MG in DEXTROSE 5%-WATER - 250 ML IVPB SCH (17:35)
[2020-01-06] MEDS: LIDOCAINE PATCH REMOVAL MC SCH (21:04)
[2020-01-06] MEDS: NORTRIPTYLINE HCL 10 MG CAPSULE PO SCH (21:14)
--- NOTE | 2020-01-07 00:11 | PN ---
Teaching Attending Note Name of Resident: Marie Johnson ATTENDING PHYSICIAN STATEMENT I saw and evaluated the patient. I reviewed the resident's note and discussed the case with the resident. I agree with the resident's findings and plan as documented. SUBJECTIVE: Patient seen and examined at bedside, admitted for pleuritic CP/?PNA, VSS. OBJECTIVE: GENERAL: The patient is awake, alert, and fully oriented, in no acute distress. NECK: Full range of motion, supple. LUNGS: Fine crackles on right lower lobe. TTP on right posterior ribs HEART: Regular rate and rhythm, S1, S2 ABDOMEN: Soft, nontender, nondistended, normoactive bowel sounds EXTREMITIES: 2+ pulses, warm, well-perfused, no edema. NEUROLOGICAL: Cranial nerves II through XII grossly intact. Normal speech PSYCH: Normal mood, normal affect. SKIN: Warm, dry, normal turgor Vital Signs - 24 hr 01/06/20 01/06/20 01/06/20 06:00 09:00 14:47 Temperature 97.7 F 97.6 F 98.0 F Pulse Rate 79 99 H 97 H Respiratory 20 18 20 Rate Blood Pressure 136/78 127/78 153/88 O2 Sat by Pulse 100 96 98 Oximetry (%) 01/06/20 01/06/20 18:00 21:38 Temperature 98.1 F 97.9 F Pulse Rate 62 89 Respiratory 20 20 Rate Blood Pressure 135/77 155/93 O2 Sat by Pulse 94 L 93 L Oximetry (%) Microbiology 01/05/20 17:50 Urine For Antigen Detection Legionella Antigen - Final 01/05/20 17:50 Urine For Antigen Detection Streptococcus pneumoniae Antigen (M - Final 01/05/20 11:00 Blood - Peripheral Venous Blood Culture - Preliminary NO GROWTH OBTAINED AFTER 24 HOURS, INCUBATION TO CONTINUE FOR 4 DAYS. 01/05/20 11:15 Blood - Peripheral Venous Blood Culture - Preliminary NO GROWTH OBTAINED AFTER 24 HOURS, INCUBATION TO CONTINUE FOR 4 DAYS. 01/05/20 08:20 Urine - Urine Clean Catch Urine Culture - Final Lactose Fermenting Neg Bacilli Laboratory Results - last 24 hr 01/05/20 01/06/20 01/06/20 11:40 06:00 07:33 WBC 8.3 RBC 4.45 Hgb 12.8 Hct 38.6 MCV 86.8 MCH 28.8 MCHC 33.2 RDW 13.7 Plt Count 142 MPV 7.8 Sodium 138 Potassium 3.9 Chloride 105 Carbon Dioxide 27 Anion Gap 6 L BUN 14.7 Creatinine 1.3 Est GFR (CKD-EPI)AfAm 62.30 Est GFR (CKD-EPI)NonAf 53.75 Random Glucose 117 H Calcium 8.2 L Phosphorus 3.5 Magnesium 2.0 COVID-19 (ERIK) Not detected Home Medications Medication Instructions Recorded Colchicine [Colcrys] 0.6 mg PO DAILY PRN 01/05/20 Gabapentin [Neurontin -] 400 mg PO Q8H 01/05/20 Nortriptyline HCl [Pamelor -] 10 mg PO HS 01/05/20 Current Medications Generic Name Dose Route Start Last Admin Trade Name Freq PRN Reason Stop Dose Admin Acetaminophen 650 mg 01/05/20 12:12 01/05/20 21:26 Tylenol - PO 650 mg Q6H PRN Administration PAIN LEVEL 6-10 Enoxaparin Sodium 40 mg 01/06/20 10:00 01/06/20 10:56 Lovenox - SQ 40 mg DAILY ALEX Administration Gabapentin 300 mg/ Gabapentin 400 mg 01/05/20 16:00 01/06/20 21:13 100 mg PO 400 mg TID ALEX Administration Azithromycin 250 mg/ Dextrose 250 mls @ 250 mls/hr 01/06/20 16:00 01/06/20 17:35 IVPB 250 mls/hr DAILY ALEX Administration Ceftriaxone Sodium 1 gm/ 50 mls @ 100 mls/hr 01/06/20 16:00 01/06/20 16:46 Dextrose IVPB 100 mls/hr DAILY ALEX Administration Lidocaine 1 patch 01/07/20 10:00 Lidoderm Patch - TP DAILY ALEX Miscellaneous 1 each 01/06/20 22:00 01/06/20 21:04 Lidoderm Patch Removal MC Not Given DAILY@2200 ALEX Nortriptyline HCl 10 mg 01/05/20 22:00 01/06/20 21:14 Pamelor - PO 10 mg HS ALEX Administration Tramadol HCl 50 mg 01/05/20 13:39 01/06/20 16:45 Ultram - PO 50 mg Q6H PRN Administration PAIN LEVEL 6-10 ASSESSMENT AND PLAN: 74 M Pleurisy v.s. PNA HTN Gout Neuropathy (idiopathic) BPH with LUTS Plan: Topical Voltaren/Lidocaine for pleuritic CP, follow CT chest results Abx for PNA if suggestive on CT chest, otherwise incentive spirometry for atelectasis cont. gabapentinoids for neuropathy/Cymbalta Send AM PSA d/t LUTS symptoms, start Flomax in AM DVT ppx: Lovenox SC
[2020-01-07] MEDS ORDERED: GABAPENTIN 300 MG CAPSULE ONE ×3 (05:28→21:22)
[2020-01-07] MEDS ORDERED: GABAPENTIN 100 MG CAPSULE ONE ×3 (05:29→21:22)
[2020-01-07] MEDS: GABAPENTIN 300 MG, GABAPENTIN 100 MG PO SCH ×3 (05:30→21:47)
[2020-01-07] MEDS ORDERED: cefTRIAXone SODIUM 1 GM VIAL ONE (09:36)
[2020-01-07] MEDS ORDERED: DEXTROSE 5%-WATER - 50 ML IVPB ONE (09:36)
[2020-01-07] MEDS: TAMSULOSIN HCL 0.4 MG CAP PO SCH (09:58)
[2020-01-07] MEDS: CEFTRIAXONE 1 GM in DEXTROSE 5%-WATER - 50 ML IVPB SCH (09:58)
[2020-01-07] MEDS: AZITHROMYCIN IVPB 250 MG in DEXTROSE 5%-WATER - 250 ML IVPB SCH (09:58)
[2020-01-07] MEDS: traMADol HCL 50 MG TABLET PO PRN (09:58)
[2020-01-07] MEDS: ENOXAPARIN NA (PORCINE) 40 MG/0.4 ML DISP.SYRIN SQ SCH (09:59)
[2020-01-07] MEDS ORDERED: ALBUTEROL SO4 2.5/IPRATROPIUM 0.5 INH SOL 3 ML VIAL.NEB. NEB PRN (09:59)
[2020-01-07] MEDS: LIDOCAINE 5% TOPICAL PATCH TP SCH (09:59)
[2020-01-07 11:36] LABS: BASO % 0.1 % (0-2.0); EOS % 0.8 % (0-4.5); HEMATOCRIT 38.9 % (35.4-49); MCH 29.2 pg (25.7-33.7); MCHC 33.3 g/dl (32.0-35.9); MEAN CELL VOLUME 87.8 fl (80-96); MEAN PLT VOLUME 8.4 fl (7.5-11.1); MONO % 7.2 % (3.8-10.2); NEUT % 75.9 % (42.8-82.8); PLATELET COUNT 152 K/MM3 (134-434); RBC 4.43 M/mm3 (4.00-5.60); RDW 13.9 % (11.9-15.9); WHITE BLOOD COUNT 7.9 K/mm3 (4.0-10.0)
[2020-01-07 12:12] LABS: ALBUMIN 2.7 g/dl (3.4-5.0); CALCIUM 8.7 mg/dL (8.5-10.1); CREATININE 1.3 mg/dL (0.55-1.3); MAGNESIUM 2.1 mg/dL (1.8-2.4); POTASSIUM 4.3 mmol/L (3.5-5.1)
[2020-01-07 12:14] LABS: BILIRUBIN,TOTAL 1.2 mg/dL (0.2-1); TOT PROT 6.5 g/dl (6.4-8.2)
--- NOTE | 2020-01-07 12:42 | CON.PULM ---
Consult Consult Specialty:: PULMONARY Referred by:: ELEANOR Reason for Consultation:: ABN CT CHEST/PLEURITIC CP - History of Present Illness Chief Complaint: RIGHT SIDED PLEURITIC CHEST PAIN History of Present Illness: 74M w/ pmh of HTN(not on meds), HLD(not on meds), gout, idiopathic BLE neuropathy presenting to [facility] with complaint of 3d of worsened Right-sided back/flank pain. Sore, cramping Right-sided pain occurred suddenly while laying down to watch TV three days prior. Pain is worse with side-bending and deep breaths. Pain increased to 10 of 10 severity so decided to come to ED. - History Source History Provided By: Patient, Medical Record Limitations to Obtaining History: No Limitations - Past Medical History [employer]: No: Alzheimer's Cardio/Vascular: Yes: HTN, Hyperlipdemia Pulmonary: No: COPD Gastrointestinal: No: Ascites, Hiatal Hernia Hepatobiliary: No: Cirrhosis Renal/: No: Renal Failure Heme/Onc: No: Anemia Infectious Disease: No: AIDS Psych: No: Addictions Musculoskeletal: No: Chronic low back pain Rheumatology: No: Gout Endocrine: Yes: Diabetes Mellitus - Alcohol/Substance Use Hx Alcohol Use: No History of Substance Use: reports: None - Smoking History Smoking history: Former smoker Have you smoked in the past 12 months: No Aproximately how many cigarettes per day: 0 If you are a former smoker, when did you quit?: 50yrs - Social History Usual Living Arrangement: With Spouse ADL: Independent Place of : [facility] History of Recent Travel: No Home Medications - Allergies Allergies/Adverse Reactions: Allergies Allergy/AdvReac Type Severity Reaction Status Date / Time aspirin Allergy Verified 01/05/20 06:13 clindamycin Allergy Verified 01/05/20 06:13 - Home Medications Home Medications: Ambulatory Orders Colchicine [Colcrys] 0.6 mg PO DAILY PRN 01/05/20 Gabapentin [Neurontin -] 400 mg PO Q8H 01/05/20 Nortriptyline HCl [Pamelor -] 10 mg PO HS 01/05/20 Family Medical History Family History: Unremarkable Review of Systems - Review of Systems Constitutional: denies: Chills, Fever, Lethargy, Loss of Appetite, Night Sweats, Unintentional Wgt. Loss, Weakness Eyes: denies: Blind Spots HENT: denies: Difficult Swallowing Neck: denies: Decreased ROM Cardiovascular: reports: Chest Pain. denies: Shortness of Breath Respiratory: reports: Other (pleuritic chest pain for three days). denies: Cough Gastrointestinal: denies: Abdominal Pain Genitourinary: denies: Burning Physical Exam Vital Sings: Vital Signs Temperature 98.6 F 01/07/20 10:15 Pulse Rate 115 H 01/07/20 10:19 Respiratory Rate 20 01/07/20 10:19 Blood Pressure 155/90 01/07/20 10:19 O2 Sat by Pulse Oximetry (%) 95 01/07/20 10:19 Constitutional: Yes: Calm Eyes: Yes: EOM Intact HENT: Yes: Normocephalic Neck: Yes: Trachea Midline Cardiovascular: Yes: Regular Rate and Rhythm Respiratory: Yes: Diminished (at right base with crackles/no friction rub), Rales Gastrointestinal: Yes: Normal Bowel Sounds, Abdomen, Obese Renal/: Yes: WNL Breast(s): Yes: WNL Musculoskeletal: Yes: WNL Extremities: Yes: WNL Edema: No Neurological: Yes: Alert Psychiatric: Yes: Alert Labs: CBC, BMP 01/07/20 10:46 01/07/20 10:46 rest reviewed Imaging - Results Chest X-ray: Report Reviewed, Image Reviewed Cat Scan: Report Reviewed, Image Reviewed Problem List - Problems (1) Pleurisy with pleural effusion Code(s): J90 - PLEURAL EFFUSION, NOT ELSEWHERE CLASSIFIED (2) Pneumonia Code(s): J18.9 - PNEUMONIA, UNSPECIFIED ORGANISM Qualifiers: Pneumonia type: due to unspecified organism Laterality: right Lung location: lower lobe of lung Qualified Code(s): J18.9 - Pneumonia, unspecified organism (3) HLD (hyperlipidemia) Code(s): E78.5 - HYPERLIPIDEMIA, UNSPECIFIED Qualifiers: Hyperlipidemia type: pure hypercholesterolemia Qualified Code(s): E78.00 - Pure hypercholesterolemia, unspecified; E78.0 - Pure hypercholesterolemia (4) HTN (hypertension) Code(s): I10 - ESSENTIAL (PRIMARY) HYPERTENSION Qualifiers: Hypertension type: essential hypertension Qualified Code(s): I10 - Essential (primary) hypertension Assessment/Plan PLEURITIC CP DUE TO RIGHT BASE INFILTRATE CAUSING SPLINTING AND SEGMENTAL ATELECTASIS AGREE WITH ANTIBIOTICS/INCENTIVE BETY/NEBS/DVT PROPHYLAXSIS HAVE ORDERED ESR/CRP PATIENT REPORTS 50% IMPROVEMENT IN SYMPTOMS SINCE HOSPITALIZATION WILL FOLLOW Brandon ACOSTA MD
--- NOTE | 2020-01-07 14:24 | PN ---
Physical Exam: SUBJECTIVE: Patient seen and examined. Reports improvement right sided pain. No acute events overnight. OBJECTIVE: Vital Signs Temperature 98.6 F 01/07/20 10:15 Pulse Rate 115 H 01/07/20 10:19 Respiratory Rate 01/07/20 10:19 Blood Pressure 155/90 01/07/20 10:19 O2 Sat by Pulse Oximetry (%) 95 01/07/20 10:19 GENERAL: The patient is awake, alert, and fully oriented, in no acute distress. NECK: Full range of motion, supple. LUNGS:clear to auscultation bilaterally. TTP on right posterior ribs HEART: Regular rate and rhythm, S1, S2 ABDOMEN: Soft, nontender, nondistended, normoactive bowel sounds EXTREMITIES: 2+ pulses, warm, well-perfused, no edema. NEUROLOGICAL: Cranial nerves II through XII grossly intact. Normal speech PSYCH: Normal mood, normal affect. SKIN: Warm, dry, normal turgor Laboratory Results - last 24 hr 01/07/20 01/07/20 01/07/20 10:46 10:46 12:43 WBC 7.9 RBC 4.43 Hgb 13.0 Hct 38.9 MCV 87.8 MCH 29.2 MCHC 33.3 RDW 13.9 Plt Count 152 MPV 8.4 Absolute Neuts (auto) 6.0 Neutrophils % 75.9 Lymphocytes % 16.0 D Monocytes % 7.2 Eosinophils % 0.8 Basophils % 0.1 Nucleated RBC % 0 Sodium 138 Potassium 4.3 Chloride 102 Carbon Dioxide 30 Anion Gap 6 L BUN 16.0 Creatinine 1.3 Est GFR (CKD-EPI)AfAm 62.30 Est GFR (CKD-EPI)NonAf 53.75 Random Glucose 133 H Calcium 8.7 Magnesium 2.1 Total Bilirubin 1.2 H AST 28 ALT 37 Alkaline Phosphatase 126 H C-Reactive Protein 15.4 H Total Protein 6.5 Albumin 2.7 L Active Medications Generic Name Dose Route Start Last Admin Trade Name Freq PRN Reason Stop Dose Admin Acetaminophen 650 mg 01/05/20 12:12 01/05/20 21:26 Tylenol - PO 650 mg Q6H PRN Administration PAIN LEVEL 6-10 Albuterol/Ipratropium 1 amp 01/07/20 09:59 Duoneb - NEB Q4H PRN SHORTNESS OF BREATH Enoxaparin Sodium 40 mg 01/06/20 10:00 01/07/20 09:59 Lovenox - SQ 40 mg DAILY ALEX Administration Gabapentin 300 mg/ Gabapentin 400 mg 01/05/20 16:00 01/07/20 05:30 100 mg PO 400 mg TID ALEX Administration Azithromycin 250 mg/ Dextrose 250 mls @ 250 mls/hr 01/06/20 16:00 01/07/20 09:58 IVPB 250 mls/hr DAILY ALEX Administration Ceftriaxone Sodium 1 gm/ 50 mls @ 100 mls/hr 01/06/20 16:00 01/07/20 09:58 Dextrose IVPB 100 mls/hr DAILY ALEX Administration Lidocaine 1 patch 01/07/20 10:00 01/07/20 09:59 Lidoderm Patch - TP 1 patch DAILY ALEX Administration Miscellaneous 1 each 01/06/20 22:00 01/06/20 21:04 Lidoderm Patch Removal MC Not Given DAILY@2200 ALEX Nortriptyline HCl 10 mg 01/05/20 22:00 01/06/20 21:14 Pamelor - PO 10 mg HS ALEX Administration Tamsulosin HCl 0.4 mg 01/07/20 08:30 01/07/20 09:58 Flomax - PO 0.4 mg DAILY@0830 ALEX Administration Tramadol HCl 50 mg 01/05/20 13:39 01/07/20 09:58 Ultram - PO 50 mg Q6H PRN Administration PAIN LEVEL 6-10 ASSESSMENT/PLAN: Patient is a 74M w/ pmh of HTN, HLD, gout, idiopathic BLE neuropathy presenting to ED with complaint of 3d of worsened Right-sided back/flank pain. Pain was sudden in onset, and worse with sidebending and deep inspirations. #Pleuritic Right-sided pain --possibly 2/2 MSK vs rib fx vs PNA, possibly atelectasis -afebrile, no leukocytosis -covid not detected -blood cultures no growth to date -urine legionella/pneumonia negative -CXR: Right-sided fluid and atelectasis w/ blunted Right angle -Chest CT - interval development of posterior bibasilar infiltrate/atelectasis, trace right pleural effusion -Ceftriaxone and azithromycin day 3 -pain control with tylenol and tramadol and lidocaine patch -avoid NSAIDs -incentive spirometry -Pulmonology (Dr. Elliott) consulted. REcommendations appreciated. #BPH on CT scan - outpt fu w/ regular Urologist #idiopathic BLE neuropathy - cw home gabapentin #HTN -not on any medications -pain controlled, bp improved -will continue to monitor -may start Amlodipine if with elevated bp #gout - takes colchicine "as needed"(typically once every 6mo) #FEN - not on any standing fluids - electrolytes wnl, routine bmp monitoring - sodium-controlled diet #PPX - lovenox 40mg sq daily #Disposition -full code -med surg Visit type - Emergency Visit Emergency Visit: Yes ED Registration Date: 01/05/20 Care time: The patient presented to the Emergency Department on the above date and was hospitalized for further evaluation of their emergent condition. - New Patient This patient is new to me today: No - Critical Care Critical Care patient: No ATTENDING PHYSICIAN STATEMENT I saw and evaluated the patient. I reviewed the resident's note and discussed the case with the resident. I agree with the resident's findings and plan as documented. SUBJECTIVE: OBJECTIVE: ASSESSMENT AND PLAN:
[2020-01-07] MEDS: NORTRIPTYLINE HCL 10 MG CAPSULE PO SCH (21:49)
[2020-01-07] MEDS: ACETAMINOPHEN 325 MG TABLET (FP) PO PRN (21:49)
[2020-01-07] MEDS: LIDOCAINE PATCH REMOVAL MC SCH (21:49)
[2020-01-08] MEDS ORDERED: GABAPENTIN 300 MG CAPSULE ONE ×3 (05:42→21:20)
[2020-01-08] MEDS ORDERED: GABAPENTIN 100 MG CAPSULE ONE ×3 (05:42→21:20)
[2020-01-08] MEDS: GABAPENTIN 300 MG, GABAPENTIN 100 MG PO SCH ×3 (06:08→22:21)
[2020-01-08] MEDS: TAMSULOSIN HCL 0.4 MG CAP PO SCH (08:43)
[2020-01-08] MEDS: traMADol HCL 50 MG TABLET PO PRN (08:43)
[2020-01-08 08:47] LABS: BASO % 0.4 % (0-2.0); EOS % 3.6 % (0-4.5); HEMATOCRIT 39.2 % (35.4-49); LYMPH % 29.7 % (8-40); MCH 28.8 pg (25.7-33.7); MCHC 33.1 g/dl (32.0-35.9); MEAN PLT VOLUME 8.2 fl (7.5-11.1); MONO % 10.8 % (3.8-10.2); NEUT % 55.5 % (42.8-82.8); PLATELET COUNT 164 K/MM3 (134-434); RDW 13.7 % (11.9-15.9)
[2020-01-08 09:18] LABS: BLOOD UREA NITROGEN 14.6 mg/dL (7-18); CALCIUM 8.8 mg/dL (8.5-10.1); CREATININE 1.2 mg/dL (0.55-1.3); MAGNESIUM 2.1 mg/dL (1.8-2.4); POTASSIUM 3.8 mmol/L (3.5-5.1)
[2020-01-08] MEDS ORDERED: cefTRIAXone SODIUM 1 GM VIAL ONE (09:30)
[2020-01-08] MEDS ORDERED: PT OWN MED DRAWER 7, Y5N ONE ×2 (09:30→21:21)
[2020-01-08] MEDS ORDERED: DEXTROSE 5%-WATER - 50 ML IVPB ONE (09:31)
[2020-01-08] MEDS: ENOXAPARIN NA (PORCINE) 40 MG/0.4 ML DISP.SYRIN SQ SCH (09:35)
[2020-01-08] MEDS: CEFTRIAXONE 1 GM in DEXTROSE 5%-WATER - 50 ML IVPB SCH (09:35)
[2020-01-08] MEDS: LIDOCAINE 5% TOPICAL PATCH TP SCH (09:36)
[2020-01-08 10:20] LABS: ERYTHROCYTE SEDIMENTATION RATE 44 mm/hr (0-20)
[2020-01-08] MEDS: AZITHROMYCIN IVPB 250 MG in DEXTROSE 5%-WATER - 250 ML IVPB SCH (10:28)
--- NOTE | 2020-01-08 14:28 | PN ---
Progress Note (short form) - Note Progress Note: Breathing feels a little better today. Less SOB and right pleuritic CP. No acute events overnight. Intake & Output 01/05/20 01/06/20 01/07/20 01/08/20 23:59 23:59 23:59 23:59 Intake Total 1150 1750 1000 Balance 1150 1750 1000 Weight 185 lb 8 oz Last Vital Signs Temp Pulse Resp BP Pulse Ox 98.2 F 104 H 18 159/83 95 01/08/20 10:00 01/08/20 10:00 01/08/20 10:00 01/08/20 10:00 01/08/20 10:00 Active Medications Acetaminophen (Tylenol -) 650 mg PO Q6H PRN PRN Reason: PAIN LEVEL 6-10 Last Admin: 01/07/20 21:49 Dose: 650 mg Documented by: Albuterol/Ipratropium (Duoneb -) 1 amp NEB Q4H PRN PRN Reason: SHORTNESS OF BREATH Enoxaparin Sodium (Lovenox -) 40 mg SQ DAILY [facility] Last Admin: 01/08/20 09:35 Dose: 40 mg Documented by: Gabapentin 300 mg/ Gabapentin (100 mg) 400 mg PO TID [facility] Last Admin: 01/08/20 13:51 Dose: 400 mg Documented by: Azithromycin 250 mg/ Dextrose 250 mls @ 250 mls/hr IVPB DAILY [facility] Last Admin: 01/08/20 10:28 Dose: 250 mls/hr Documented by: Ceftriaxone Sodium 1 gm/ (Dextrose) 50 mls @ 100 mls/hr IVPB DAILY [facility] Last Admin: 01/08/20 09:35 Dose: 100 mls/hr Documented by: Lidocaine (Lidoderm Patch -) 1 patch TP DAILY [facility] Last Admin: 01/08/20 09:36 Dose: 1 patch Documented by: Miscellaneous (Lidoderm Patch Removal) 1 each MC DAILY@2200 [facility] Last Admin: 01/07/20 21:49 Dose: 1 each Documented by: Nortriptyline HCl (Pamelor -) 10 mg PO HS [facility] Last Admin: 01/07/20 21:49 Dose: 10 mg Documented by: Tamsulosin HCl (Flomax -) 0.4 mg PO DAILY@0830 [facility] Last Admin: 01/08/20 08:43 Dose: 0.4 mg Documented by: Constitutional: Yes: NAD Eyes: Yes: EOM Intact HENT: Yes: Normocephalic Neck: Yes: Trachea Midline Cardiovascular: Yes: Regular Rate and Rhythm Respiratory: Yes: Diminished, basilar coarse rhonchi Right > Left Gastrointestinal: Yes: Normal Bowel Sounds, Abdomen, Obese Renal/: Yes: WNL Breast(s): Yes: WNL Musculoskeletal: Yes: WNL Extremities: Yes: WNL Edema: No Neurological: Yes: Alert Psychiatric: Yes: Alert Labs: Laboratory Results - last 24 hr 01/07/20 01/08/20 01/08/20 12:43 07:14 07:14 WBC 6.0 RBC 4.50 Hgb 13.0 Hct 39.2 MCV 87.0 MCH 28.8 MCHC 33.1 RDW 13.7 Plt Count 164 MPV 8.2 Absolute Neuts (auto) 3.3 Neutrophils % 55.5 D Lymphocytes % 29.7 D Monocytes % 10.8 H Eosinophils % 3.6 D Basophils % 0.4 D Nucleated RBC % 0 ESR 79 H 44 H Sodium 138 Potassium 3.8 Chloride 104 Carbon Dioxide 27 Anion Gap 7 L BUN 14.6 Creatinine 1.2 Est GFR (CKD-EPI)AfAm 68.63 Est GFR (CKD-EPI)NonAf 59.21 Random Glucose 90 Calcium 8.8 Phosphorus 3.0 Magnesium 2.1 C-Reactive Protein 11.5 H Imaging - Results Chest X-ray: Report Reviewed, Image Reviewed Cat Scan: Report Reviewed, Image Reviewed Problem List - Problems (1) Pleurisy with pleural effusion Code(s): J90 - PLEURAL EFFUSION, NOT ELSEWHERE CLASSIFIED (2) Pneumonia Code(s): J18.9 - PNEUMONIA, UNSPECIFIED ORGANISM Qualifiers: Pneumonia type: due to unspecified organism Laterality: right Lung location: lower lobe of lung Qualified Code(s): J18.9 - Pneumonia, unspecified organism (3) HLD (hyperlipidemia) Code(s): E78.5 - HYPERLIPIDEMIA, UNSPECIFIED Qualifiers: Hyperlipidemia type: pure hypercholesterolemia Qualified Code(s): E78.00 - Pure hypercholesterolemia, unspecified; E78.0 - Pure hypercholesterolemia (4) HTN (hypertension) Code(s): I10 - ESSENTIAL (PRIMARY) HYPERTENSION Qualifiers: Hypertension type: essential hypertension Qualified Code(s): I10 - Essential (primary) hypertension Assessment/Plan ABX Follow cultures Supplemental O2 as needed VTE prophylaxis Dr Lara
--- NOTE | 2020-01-08 16:39 | PN ---
Physical Exam: Patient is a 74M w/ pmh of HTN, HLD, gout, idiopathic BLE neuropathy presenting to ED with complaint of worsened Right-sided back/flank pain. Pain was sudden in onset, and worse with side bending and deep inspirations. 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 HEAD: Normal with no signs of trauma. EYES: PERRL, extraocular movements intact, sclera anicteric, conjunctiva clear. No ptosis. ENT: Ears normal, nares patent, oropharynx clear without exudates, moist mucous membranes. NECK: Trachea midline, full range of motion, supple. LUNGS: Breath sounds equal, clear to auscultation bilaterally, no wheezes, no crackles, no accessory muscle use. HEART: Regular rate and rhythm, S1, S2 without murmur, rub or gallop. ABDOMEN: obese, Soft, nontender, nondistended, normoactive bowel sounds, no guarding, no rebound, no hepatosplenomegaly, no masses. EXTREMITIES: 2+ pulses, warm, well-perfused, no edema. NEUROLOGICAL: Cranial nerves II through XII grossly intact. Normal speech, gait not observed. PSYCH: Normal mood, normal affect. SKIN: Warm, dry, normal turgor, no rashes or lesions noted Laboratory Results - last 24 hr 01/08/20 01/08/20 07:14 07:14 WBC 6.0 RBC 4.50 Hgb 13.0 Hct 39.2 MCV 87.0 MCH 28.8 MCHC 33.1 RDW 13.7 Plt Count 164 MPV 8.2 Absolute Neuts (auto) 3.3 Neutrophils % 55.5 D Lymphocytes % 29.7 D Monocytes % 10.8 H Eosinophils % 3.6 D Basophils % 0.4 D Nucleated RBC % 0 ESR 44 H Sodium 138 Potassium 3.8 Chloride 104 Carbon Dioxide 27 Anion Gap 7 L BUN 14.6 Creatinine 1.2 Est GFR (CKD-EPI)AfAm 68.63 Est GFR (CKD-EPI)NonAf 59.21 Random Glucose 90 Calcium 8.8 Phosphorus 3.0 Magnesium 2.1 C-Reactive Protein 11.5 H Active Medications Generic Name Dose Route Start Last Admin Trade Name Frejeremias PRN Reason Stop Dose Admin Acetaminophen 650 mg 01/05/20 12:12 01/07/20 21:49 Tylenol - PO 650 mg Q6H PRN Administration PAIN LEVEL 6-10 Albuterol/Ipratropium 1 amp 01/07/20 09:59 Duoneb - NEB Q4H PRN SHORTNESS OF BREATH Enoxaparin Sodium 40 mg 01/06/20 10:00 01/08/20 09:35 Lovenox - SQ 40 mg DAILY ALEX Administration Gabapentin 300 mg/ Gabapentin 400 mg 01/05/20 16:00 01/08/20 13:51 100 mg PO 400 mg TID ALEX Administration Azithromycin 250 mg/ Dextrose 250 mls @ 250 mls/hr 01/06/20 16:00 01/08/20 10:28 IVPB 250 mls/hr DAILY ALEX Administration Ceftriaxone Sodium 1 gm/ 50 mls @ 100 mls/hr 01/06/20 16:00 01/08/20 09:35 Dextrose IVPB 100 mls/hr DAILY ALEX Administration Lidocaine 1 patch 01/07/20 10:00 01/08/20 09:36 Lidoderm Patch - TP 1 patch DAILY ALEX Administration Miscellaneous 1 each 01/06/20 22:00 01/07/20 21:49 Lidoderm Patch Removal MC 1 each DAILY@2200 ALEX Administration Nortriptyline HCl 10 mg 01/05/20 22:00 01/07/20 21:49 Pamelor - PO 10 mg HS ALEX Administration Tamsulosin HCl 0.4 mg 01/07/20 08:30 01/08/20 08:43 Flomax - PO 0.4 mg DAILY@0830 ALEX Administration ASSESSMENT/PLAN: #Pleurisy -afebrile, no leukocytosis - possible occupational exposure to asbestos -covid -ve, pneumonia work up negative, CRP trending down -CXR: Right-sided fluid and atelectasis w/ blunted Right angle -Chest CT - interval development of posterior bibasilar infiltrate/atelectasis, trace right pleural effusion -Ceftriaxone and azithromycin day 4, will complete 5 days total. -pain control with tylenol and tramadol and lidocaine patch -incentive spirometry -Pulmonology consulted. Recommendations appreciated. #BPH on CT scan - outpt fu w/ regular Urologist #idiopathic BLE neuropathy - cw home gabapentin #gout - takes colchicine PRN #DVT prophylaxis - lovenox 40mg sq daily Visit type - Emergency Visit Emergency Visit: Yes ED Registration Date: 01/05/20 Care time: The patient presented to the Emergency Department on the above date and was hospitalized for further evaluation of their emergent condition. - New Patient This patient is new to me today: Yes Date on this admission: 01/08/20 - Critical Care Critical Care patient: No - Discharge Referral Referred to [facility] Med P.C[facility] No
[2020-01-08] MEDS: NORTRIPTYLINE HCL 10 MG CAPSULE PO SCH (22:21)
[2020-01-08] MEDS: LIDOCAINE PATCH REMOVAL MC SCH (22:21)
[2020-01-08] MEDS: ACETAMINOPHEN 325 MG TABLET (FP) PO PRN (23:58)
[2020-01-09] MEDS ORDERED: GABAPENTIN 100 MG CAPSULE ONE ×2 (05:20→14:13)
[2020-01-09] MEDS ORDERED: GABAPENTIN 300 MG CAPSULE ONE ×3 (05:20→14:13)
[2020-01-09] MEDS: ACETAMINOPHEN 325 MG TABLET (FP) PO PRN (05:48)
[2020-01-09] MEDS: GABAPENTIN 300 MG, GABAPENTIN 100 MG PO SCH ×2 (05:53→14:24)
[2020-01-09] MEDS ORDERED: cefTRIAXone SODIUM 1 GM VIAL ONE (09:18)
[2020-01-09] MEDS ORDERED: DEXTROSE 5%-WATER - 50 ML IVPB ONE (09:18)
[2020-01-09] MEDS: AZITHROMYCIN IVPB 250 MG in DEXTROSE 5%-WATER - 250 ML IVPB SCH (09:22)
[2020-01-09] MEDS: LIDOCAINE 5% TOPICAL PATCH TP SCH (09:22)
[2020-01-09] MEDS: TAMSULOSIN HCL 0.4 MG CAP PO SCH (09:22)
[2020-01-09] MEDS: CEFTRIAXONE 1 GM in DEXTROSE 5%-WATER - 50 ML IVPB SCH (09:23)
[2020-01-09] MEDS: ENOXAPARIN NA (PORCINE) 40 MG/0.4 ML DISP.SYRIN SQ SCH (09:23)
[2020-01-09] MEDS ORDERED: COLCHICINE 0.6 MG CAP PO ONE (12:52)
--- NOTE | 2020-01-09 13:31 | DS ---
Physical Exam: SUBJECTIVE: Patient seen and examined at bedside, stated his symptoms improved OBJECTIVE: Vital Signs Period Temp Pulse Resp BP Sys/[place] Pulse Ox Last 24 Hr 97.6 F-98.6 F 91-95 18-18 143-153/91-102 94-97 PHYSICAL EXAM GENERAL: The patient is awake, alert, and fully oriented, in no acute distress. HEAD: Normal with no signs of trauma. EYES: PERRL, extraocular movements intact, sclera anicteric, conjunctiva clear. ENT: Ears normal, nares patent, oropharynx clear without exudates, moist mucous membranes. NECK: Trachea midline, full range of motion, supple. LUNGS: Breath sounds equal, clear to auscultation bilaterally, no wheezes, no crackles, no accessory muscle use. HEART: Regular rate and rhythm, S1, S2 without murmur, rub or gallop. ABDOMEN: Soft, nontender, nondistended, normoactive bowel sounds, no guarding, no rebound, no hepatosplenomegaly, no masses. EXTREMITIES: 2+ pulses, warm, well-perfused, no edema. NEUROLOGICAL: Cranial nerves II through XII grossly intact. Normal speech, gait not observed. PSYCH: Normal mood, normal affect. SKIN: Warm, dry, normal turgor, no rashes or lesions noted. LABS Laboratory Results - last 24 hr 01/07/20 10:46 Prostate Specific Ag 1.30 Laboratory Tests 01/05/20 01/05/20 01/05/20 08:20 08:30 08:30 WBC 8.9 RBC 4.93 Hgb 14.1 Hct 42.8 MCV 86.9 MCH 28.6 MCHC 32.9 RDW 14.1 Plt Count 154 MPV 7.9 Absolute Neuts (auto) 6.0 Neutrophils % 67.6 D Lymphocytes % 21.1 D Monocytes % 10.1 Eosinophils % 0.6 Basophils % 0.6 Nucleated RBC % 0 ESR PT with INR 12.60 INR 1.07 Sodium Potassium Chloride Carbon Dioxide Anion Gap BUN Creatinine Est GFR (CKD-EPI)AfAm Est GFR (CKD-EPI)NonAf Random Glucose Calcium Phosphorus Magnesium Total Bilirubin AST ALT Alkaline Phosphatase C-Reactive Protein Total Protein Albumin Prostate Specific Ag Urine Color Yellow Urine Appearance Clear Urine pH 6.5 Ur Specific [place] 1.011 Urine Protein Negative Urine Glucose (UA) Negative Urine Ketones Negative Urine Blood Negative Urine Nitrite Negative Urine Bilirubin Negative Urine Urobilinogen 0.2 Ur Leukocyte Esterase Negative COVID-19 ([facility]) 01/05/20 01/05/20 01/06/20 08:30 11:40 06:00 WBC RBC Hgb Hct MCV MCH MCHC RDW Plt Count MPV Absolute Neuts (auto) Neutrophils % Lymphocytes % Monocytes % Eosinophils % Basophils % Nucleated RBC % ESR PT with INR INR Sodium 141 138 Potassium 5.1 3.9 Chloride 107 105 Carbon Dioxide 26 27 Anion Gap 8 6 L BUN 10.0 14.7 Creatinine 1.3 1.3 Est GFR (CKD-EPI)AfAm 62.30 62.30 Est GFR (CKD-EPI)NonAf 53.75 53.75 Random Glucose 113 H 117 H Calcium 8.9 8.2 L Phosphorus 3.5 Magnesium 2.0 Total Bilirubin 0.6 AST 39 H ALT 36 Alkaline Phosphatase 132 H C-Reactive Protein Total Protein 7.4 Albumin 3.2 L Prostate Specific Ag Urine Color Urine Appearance Urine pH Ur Specific [place] Urine Protein Urine Glucose (UA) Urine Ketones Urine Blood Urine Nitrite Urine Bilirubin Urine Urobilinogen Ur Leukocyte Esterase COVID-19 ([facility]) Not detected 01/06/20 01/07/20 01/07/20 07:33 10:46 10:46 WBC 8.3 7.9 RBC 4.45 4.43 Hgb 12.8 13.0 Hct 38.6 38.9 MCV 86.8 87.8 MCH 28.8 29.2 MCHC 33.2 33.3 RDW 13.7 13.9 Plt Count 142 152 MPV 7.8 8.4 Absolute Neuts (auto) 6.0 Neutrophils % 75.9 Lymphocytes % 16.0 D Monocytes % 7.2 Eosinophils % 0.8 Basophils % 0.1 Nucleated RBC % 0 ESR PT with INR INR Sodium Potassium Chloride Carbon Dioxide Anion Gap BUN Creatinine Est GFR (CKD-EPI)AfAm Est GFR (CKD-EPI)NonAf Random Glucose Calcium Phosphorus Magnesium Total Bilirubin AST ALT Alkaline Phosphatase C-Reactive Protein Total Protein Albumin Prostate Specific Ag 1.30 Urine Color Urine Appearance Urine pH Ur Specific [place] Urine Protein Urine Glucose (UA) Urine Ketones Urine Blood Urine Nitrite Urine Bilirubin Urine Urobilinogen Ur Leukocyte Esterase COVID-19 ([facility]) 01/07/20 01/07/20 01/07/20 10:46 12:43 12:43 WBC RBC Hgb Hct MCV MCH MCHC RDW Plt Count MPV Absolute Neuts (auto) Neutrophils % Lymphocytes % Monocytes % Eosinophils % Basophils % Nucleated RBC % ESR 79 H PT with INR INR Sodium 138 Potassium 4.3 Chloride 102 Carbon Dioxide 30 Anion Gap 6 L BUN 16.0 Creatinine 1.3 Est GFR (CKD-EPI)AfAm 62.30 Est GFR (CKD-EPI)NonAf 53.75 Random Glucose 133 H Calcium 8.7 Phosphorus Magnesium 2.1 Total Bilirubin 1.2 H AST 28 ALT 37 Alkaline Phosphatase 126 H C-Reactive Protein 15.4 H Total Protein 6.5 Albumin 2.7 L Prostate Specific Ag Urine Color Urine Appearance Urine pH Ur Specific [place] Urine Protein Urine Glucose (UA) Urine Ketones Urine Blood Urine Nitrite Urine Bilirubin Urine Urobilinogen Ur Leukocyte Esterase COVID-19 ([facility]) 01/08/20 01/08/20 07:14 07:14 WBC 6.0 RBC 4.50 Hgb 13.0 Hct 39.2 MCV 87.0 MCH 28.8 MCHC 33.1 RDW 13.7 Plt Count 164 MPV 8.2 Absolute Neuts (auto) 3.3 Neutrophils % 55.5 D Lymphocytes % 29.7 D Monocytes % 10.8 H Eosinophils % 3.6 D Basophils % 0.4 D Nucleated RBC % 0 ESR 44 H PT with INR INR Sodium 138 Potassium 3.8 Chloride 104 Carbon Dioxide 27 Anion Gap 7 L BUN 14.6 Creatinine 1.2 Est GFR (CKD-EPI)AfAm 68.63 Est GFR (CKD-EPI)NonAf 59.21 Random Glucose 90 Calcium 8.8 Phosphorus 3.0 Magnesium 2.1 Total Bilirubin AST ALT Alkaline Phosphatase C-Reactive Protein 11.5 H Total Protein Albumin Prostate Specific Ag Urine Color Urine Appearance Urine pH Ur Specific [place] Urine Protein Urine Glucose (UA) Urine Ketones Urine Blood Urine Nitrite Urine Bilirubin Urine Urobilinogen Ur Leukocyte Esterase COVID-19 ([facility]) HOSPITAL COURSE: pt was admitted with rt sided pleuretic chest pain, CT scan of chest showed rt sided trace pleural effusion with rt post. basilar curvilinear paranchymal scarring. Pt was started on pain medications and IV ceftriaxone and azithromycin, his condition continued to improve over the course of his stay, his abx was changed to PO azithromycin and was cleared by microbiology lab manager for outpatient workup of his pleurisy. On the last day, pt reported mild pain in his lt metatarsal joint and was provided colchicine. Date of Admission:01/05/20 Date of Discharge: 01/09/20 Minutes to complete discharge: 40 Discharge Summary Problems reviewed: Yes Reason For Visit: PNEUMONIA Current Active Problems Pleurisy with pleural effusion (Acute) Pneumonia (Acute) Condition: Improved - Instructions Diet, Activity, Other Instructions: Your visit You were admitted to the hospital because you had right sided pain. Medications Please continue your home medications. Follow up Please follow up with your primary care doctor within 1 week. Please schedule a follow up appointment with microbiology lab manager Additional info Please call 911 or go to the ED if with any worsening fevers, chills, headache, dizziness, chest pain, shortness of breath, belly pain or any new concerns noted. Referrals: Lauren Cisneros [Primary Care Provider] - Ramin Lara MD [Staff Physician] - Disposition: HOME - Home Medications Comprehensive Discharge Medication List: Ambulatory Orders Colchicine [Colcrys] 0.6 mg PO DAILY PRN 01/05/20 Gabapentin [Neurontin -] 400 mg PO Q8H 01/05/20 Nortriptyline HCl [Pamelor -] 10 mg PO HS 01/05/20 Acetaminophen [Tylenol .Regular Strength -] 650 mg PO Q6H PRN tablet 01/09/20 Azithromycin [Zithromax] 500 mg PO DAILY 2 Days #2 tablet MDD 1 01/09/20 Tamsulosin HCl [Flomax -] 0.4 mg PO DAILY@0830 7 Days #7 cap.er.24h 01/09/20 Tramadol HCl 50 mg PO Q6H PRN 3 Days #12 tablet MDD 200mg 01/09/20 This patient is new to me today: No Emergency Visit: Yes ED Registration Date: 01/05/20 Care time: The patient presented to the Emergency Department on the above date and was hospitalized for further evaluation of their emergent condition. Critical Care patient: No - Discharge Referral Referred to [facility] Med P.C.: No
--- NOTE | 2020-01-09 14:07 | PN ---
Progress Note (short form) - Note Progress Note: Breathing feels overall better today. No acute events overnight. Intake & Output 01/06/20 01/07/20 01/08/20 01/09/20 23:59 23:59 23:59 23:59 Intake Total 1750 1000 1500 Balance 1750 1000 1500 Last Vital Signs Temp Pulse Resp BP Pulse Ox 97.6 F 91 H 18 143/102 H 95 01/09/20 06:00 01/09/20 06:00 01/09/20 06:00 01/09/20 06:00 01/09/20 06:00 Active Medications Acetaminophen (Tylenol -) 650 mg PO Q6H PRN PRN Reason: PAIN LEVEL 6-10 Last Admin: 01/09/20 05:48 Dose: 650 mg Documented by: Albuterol/Ipratropium (Duoneb -) 1 amp NEB Q4H PRN PRN Reason: SHORTNESS OF BREATH Enoxaparin Sodium (Lovenox -) 40 mg SQ DAILY [facility] Last Admin: 01/09/20 09:23 Dose: 40 mg Documented by: Gabapentin 300 mg/ Gabapentin (100 mg) 400 mg PO TID [facility] Last Admin: 01/09/20 05:53 Dose: 400 mg Documented by: Azithromycin 250 mg/ Dextrose 250 mls @ 250 mls/hr IVPB DAILY [facility] Last Admin: 01/09/20 09:22 Dose: 250 mls/hr Documented by: Ceftriaxone Sodium 1 gm/ (Dextrose) 50 mls @ 100 mls/hr IVPB DAILY [facility] Last Admin: 01/09/20 09:23 Dose: 100 mls/hr Documented by: Lidocaine (Lidoderm Patch -) 1 patch TP DAILY [facility] Last Admin: 01/09/20 09:22 Dose: 1 patch Documented by: Miscellaneous (Lidoderm Patch Removal) 1 each MC DAILY@2200 [facility] Last Admin: 01/08/20 22:21 Dose: 1 each Documented by: Nortriptyline HCl (Pamelor -) 10 mg PO HS [facility] Last Admin: 01/08/20 22:21 Dose: 10 mg Documented by: Tamsulosin HCl (Flomax -) 0.4 mg PO DAILY@0830 [facility] Last Admin: 01/09/20 09:22 Dose: 0.4 mg Documented by: Constitutional: Yes: NAD Eyes: Yes: EOM Intact HENT: Yes: Normocephalic Neck: Yes: Trachea Midline Cardiovascular: Yes: Regular Rate and Rhythm Respiratory: Yes: Diminished, few rhonchi Right > Left Gastrointestinal: Yes: Normal Bowel Sounds, Abdomen, Obese Renal/: Yes: WNL Breast(s): Yes: WNL Musculoskeletal: Yes: WNL Extremities: Yes: WNL Edema: No Neurological: Yes: Alert Psychiatric: Yes: Alert Labs: Laboratory Results - last 24 hr 01/07/20 10:46 Prostate Specific Ag 1.30 Imaging - Results Chest X-ray: Report Reviewed, Image Reviewed Cat Scan: Report Reviewed, Image Reviewed Problem List - Problems (1) Pleurisy with pleural effusion Code(s): J90 - PLEURAL EFFUSION, NOT ELSEWHERE CLASSIFIED (2) Pneumonia Code(s): J18.9 - PNEUMONIA, UNSPECIFIED ORGANISM Qualifiers: Pneumonia type: due to unspecified organism Laterality: right Lung location: lower lobe of lung Qualified Code(s): J18.9 - Pneumonia, unspecified organism (3) HLD (hyperlipidemia) Code(s): E78.5 - HYPERLIPIDEMIA, UNSPECIFIED Qualifiers: Hyperlipidemia type: pure hypercholesterolemia Qualified Code(s): E78.00 - Pure hypercholesterolemia, unspecified; E78.0 - Pure hypercholesterolemia (4) HTN (hypertension) Code(s): I10 - ESSENTIAL (PRIMARY) HYPERTENSION Qualifiers: Hypertension type: essential hypertension Qualified Code(s): I10 - Essential (primary) hypertension Assessment/Plan Can transition to PO ABX to complete course No smoking Follow in the office 2 to [address] Lara
[2020-01-09 15:11] VITALS: BP 149/94; PULSE 98; TEMP 98.8
== END 2020-01-09 15:00 | disposition home or self-care (01) | DRG 194 ==
LOC: JER 05:41 → JERBED 11:13 → J5S 15:01
PROVIDERS: ADMIT Internal Medicine; ATTEND Student in an Organized Health Care Education/Training Program
DX: J18.9 Pneumonia, unspecified organism (principal); J90 Pleural effusion, not elsewhere classified; J98.11 Atelectasis; E87.5 Hyperkalemia; I10 Essential (primary) hypertension; E78.5 Hyperlipidemia, unspecified; M10.9 Gout, unspecified; G60.9 Hereditary and idiopathic neuropathy, unspecified; N40.0 Benign prostatic hyperplasia without lower urinary tract symptoms; E66.9 Obesity, unspecified; Z68.25 Body mass index [BMI] 25.0-25.9, adult
CPT/HCPCS: 36415; 71046-TC-FY; 71250-TC; 74176-TC; 76705-TC; 80048; 80053; 81003; 83735; 84100; 84153; 85025; 85027; 85610; 85651; 86140; 87040; 87086; 87899; 90670; 93005; 93010; 93880-TC; 97116-GP; 97161-GP; 99285-25; J0131; U0003

== ENCOUNTER 2021-02-28 11:22 | Emergency (ER) | payer OTHER ==
[2021-02-28 11:31] VITALS: BP 136/75; PULSE 89; TEMP 98.7; BMI 25.1
== END 2021-02-28 13:58 | disposition home or self-care (01) ==
LOC: JERFT 11:22
DX: M79.671 Pain in right foot (principal); M79.672 Pain in left foot; M25.512 Pain in left shoulder; W18.40XA Slipping, tripping and stumbling without falling, unspecified, initial encounter
CPT/HCPCS: 73610-TC-LT-FY; 73610-TC-RT-FY; 73630-TC-LT; 73630-TC-RT-FY; 99284-25

== ENCOUNTER 2021-11-01 10:32 | Observation (INO) | payer OTHER ==
[2021-11-01] MEDS ORDERED: SODIUM CHLORIDE 0.9% 500 ML INFUS.BAG IV ONE (11:31)
[2021-11-01 12:02] LABS: BASO % 0.2 % (0-2.0); EOS % 0.2 % (0-4.5); HEMATOCRIT 42.3 % (35.4-49); HEMOGLOBIN 13.8 GM/dL (11.7-16.9); LYMPH % 22.5 % (8-40); MCH 29.1 pg (25.7-33.7); MCHC 32.6 g/dl (32.0-35.9); MEAN CELL VOLUME 89.5 fl (80-96); MEAN PLT VOLUME 7.7 fl (7.5-11.1); MONO % 10.2 % (3.8-10.2); NEUT % 66.9 % (42.8-82.8); PLATELET COUNT 138 10^3/uL (134-434); RBC 4.73 M/mm3 (4.00-5.60); WHITE BLOOD COUNT 8.7 K/mm3 (4.0-10.0)
[2021-11-01 12:15] LABS: INR 1.09 (0.83-1.09); PROTHROMBIN TIME (PATIENT) 12.6 SEC (9.7-13.0)
[2021-11-01 12:18] LABS: ACTIVATED PTT 28.5 SECONDS (25.2-36.5)
[2021-11-01 12:23] LABS: CALCIUM 9.3 mg/dL (8.5-10.1)
[2021-11-01 12:24] LABS: ALBUMIN 3.4 g/dl (3.4-5.0); BLOOD UREA NITROGEN 13.5 mg/dL (7-18); MAGNESIUM 2.3 mg/dL (1.8-2.4)
[2021-11-01 12:27] LABS: CREATININE 1.2 mg/dL (0.55-1.3)
[2021-11-01 12:28] LABS: BILIRUBIN,TOTAL 0.8 mg/dL (0.2-1); TOT PROT 6.9 g/dl (6.4-8.2)
[2021-11-01 14:33] LABS: N-TERMINAL BNP 17.9 pg/ml (5-450)
[2021-11-01] MEDS ORDERED: ENOXAPARIN NA (PORCINE) 80 MG/0.8 ML DISP.SYRIN SQ ONE ×2 (15:46→16:06)
[2021-11-01] MEDS ORDERED: ACETAMINOPHEN 1000 MG/100 ML BAG IVPB ONE (15:50)
[2021-11-01] MEDS ORDERED: ACETAMINOPHEN INJECTION 100 ML IVPB ONE (16:06)
[2021-11-01] MEDS ORDERED: ACETAMINOPHEN 325 MG TABLET (FP) PO PRN (19:38)
[2021-11-01] MEDS ORDERED: COLCHICINE 0.6 MG TAB PO PRN (19:38)
[2021-11-01] MEDS ORDERED: MELATONIN 5 MG TABLETS PO PRN (19:42)
[2021-11-01] MEDS ORDERED: ENOXAPARIN NA (PORCINE) 80 MG/0.8 ML DISP.SYRIN SQ SCH (22:00)
[2021-11-01] MEDS ORDERED: GABAPENTIN 400 MG CAPSULE ONE (22:08)
[2021-11-01] MEDS: GABAPENTIN 400 MG CAPSULE PO SCH (22:19)
[2021-11-01 23:14] VITALS: BMI 24.7
[2021-11-02] MEDS: ENOXAPARIN NA (PORCINE) 80 MG/0.8 ML DISP.SYRIN SQ SCH ×3 (02:09→21:19)
[2021-11-02] MEDS: GABAPENTIN 400 MG CAPSULE PO SCH ×2 (07:38→15:01)
[2021-11-02] MEDS: TAMSULOSIN HCL 0.4 MG CAP PO SCH (07:38)
[2021-11-02 08:40] LABS: BASO % 0.2 % (0-2.0); EOS % 0.5 % (0-4.5); HEMATOCRIT 39.9 % (35.4-49); HEMOGLOBIN 13.4 GM/dL (11.7-16.9); LYMPH % 27.8 % (8-40); MCH 29.8 pg (25.7-33.7); MCHC 33.6 g/dl (32.0-35.9); MEAN CELL VOLUME 88.8 fl (80-96); MEAN PLT VOLUME 8.2 fl (7.5-11.1); MONO % 11.1 % (3.8-10.2); NEUT % 60.4 % (42.8-82.8); PLATELET COUNT 139 10^3/uL (134-434); RDW 14.5 % (11.9-15.9); WHITE BLOOD COUNT 8.6 K/mm3 (4.0-10.0)
[2021-11-02 09:41] LABS: ALBUMIN 3.1 g/dl (3.4-5.0); BLOOD UREA NITROGEN 12.3 mg/dL (7-18); CALCIUM 9.1 mg/dL (8.5-10.1); CREATININE 0.9 mg/dL (0.55-1.3); TOT PROT 6.4 g/dl (6.4-8.2)
[2021-11-02] MEDS: ALLOPURINOL 300 MG TABLET (FP) PO SCH (16:34)
[2021-11-02] MEDS: LOSARTAN POTASSIUM 25 MG TABLET PO SCH (16:34)
[2021-11-02] MEDS ORDERED: POLYETHYLENE GLYCOL (HEALTHYLAX) 3350 17 GM PACKET PO ONE (17:42)
[2021-11-02] MEDS: GABAPENTIN 300 MG CAPSULE PO SCH (21:20)
[2021-11-03] MEDS: GABAPENTIN 300 MG CAPSULE PO SCH ×2 (05:59→13:53)
[2021-11-03 06:56] LABS: BASO % 0.2 % (0-2.0); EOS % 0.2 % (0-4.5); HEMATOCRIT 39.6 % (35.4-49); HEMOGLOBIN 13.2 GM/dL (11.7-16.9); LYMPH % 21.8 % (8-40); MCH 29.5 pg (25.7-33.7); MCHC 33.3 g/dl (32.0-35.9); MEAN CELL VOLUME 88.4 fl (80-96); MONO % 12.2 % (3.8-10.2); NEUT % 65.6 % (42.8-82.8); PLATELET COUNT 153 10^3/uL (134-434); RBC 4.48 M/mm3 (4.00-5.60); RDW 14.9 % (11.9-15.9); WHITE BLOOD COUNT 8.1 K/mm3 (4.0-10.0)
[2021-11-03 07:43] LABS: ALBUMIN 2.9 g/dl (3.4-5.0); CALCIUM 8.7 mg/dL (8.5-10.1)
[2021-11-03 07:44] LABS: BLOOD UREA NITROGEN 14.8 mg/dL (7-18)
[2021-11-03 07:46] LABS: CREATININE 0.9 mg/dL (0.55-1.3)
[2021-11-03 07:48] LABS: TOT PROT 6.1 g/dl (6.4-8.2)
[2021-11-03] MEDS: LOSARTAN POTASSIUM 25 MG TABLET PO SCH (09:41)
[2021-11-03] MEDS: ENOXAPARIN NA (PORCINE) 80 MG/0.8 ML DISP.SYRIN SQ SCH (09:41)
[2021-11-03] MEDS: ALLOPURINOL 300 MG TABLET (FP) PO SCH (09:41)
[2021-11-03] MEDS: TAMSULOSIN HCL 0.4 MG CAP PO SCH (09:41)
[2021-11-03 15:11] VITALS: BP 113/67; PULSE 114; TEMP 98.6
== END 2021-11-03 18:35 | disposition home or self-care (01) ==
LOC: JER 10:32 → INTOOBSV 16:47 → JERBED 16:47 → UNDOADMOB 16:47 → JERBED 18:36 → J4W 22:44
PROVIDERS: ADMIT Internal Medicine; ATTEND Internal Medicine
PROC: 3E033NZ Introduction of Analgesics, Hypnotics, Sedatives into Peripheral Vein, Percutaneous Approach (ICD-10-PCS; principal; 2021-11-01)
PROC: 3E023GC Introduction of Other Therapeutic Substance into Muscle, Percutaneous Approach (ICD-10-PCS; 2021-11-01)
PROC: 3E0337Z Introduction of Electrolytic and Water Balance Substance into Peripheral Vein, Percutaneous Approach (ICD-10-PCS; 2021-11-01)
DX: I26.99 Other pulmonary embolism without acute cor pulmonale (principal); I10 Essential (primary) hypertension; E78.5 Hyperlipidemia, unspecified; Z87.891 Personal history of nicotine dependence; R06.02 Shortness of breath; M10.9 Gout, unspecified; Z88.8 Allergy status to other drugs, medicaments and biological substances; Z88.1 Allergy status to other antibiotic agents; G60.9 Hereditary and idiopathic neuropathy, unspecified; E11.21 Type 2 diabetes mellitus with diabetic nephropathy
CPT/HCPCS: 36415; 71046-TC-FY; 71275-TC; 80053; 83735; 83880; 84484; 85025; 85379; 85610; 85730; 93005; 93010; 93306-TC; 93970-TC; 96372; 96374; 99285-25; C9803-CS; G0378; Q9967; U0003; U0005

== ENCOUNTER → 2021-11-07 | Emergency (ER) | payer OTHER ==
[2021-11-07 22:03] VITALS: BP 140/83; PULSE 108; TEMP 99.2; BMI 25.1
== END ==
LOC: JER 21:20
DX: R06.02 Shortness of breath (principal)
CPT/HCPCS: 99282-25

== ENCOUNTER 2021-11-19 10:45 | Emergency (ER) | payer OTHER ==
[2021-11-19 11:05] VITALS: BMI 25.1
[2021-11-19 14:09] LABS: BASO % 0.6 % (0-2.0); EOS % 0.1 % (0-4.5); HEMATOCRIT 34.8 % (35.4-49); HEMOGLOBIN 11.7 GM/dL (11.7-16.9); LYMPH % 32.8 % (8-40); MCH 29.7 pg (25.7-33.7); MCHC 33.5 g/dl (32.0-35.9); MEAN CELL VOLUME 88.5 fl (80-96); MEAN PLT VOLUME 8.4 fl (7.5-11.1); MONO % 13.3 % (3.8-10.2); NEUT % 53.2 % (42.8-82.8); PLATELET COUNT 273 10^3/uL (134-434); RBC 3.93 M/mm3 (4.00-5.60); RDW 15.3 % (11.9-15.9); WHITE BLOOD COUNT 4.8 K/mm3 (4.0-10.0)
[2021-11-19 14:13] LABS: EPI CELLS 3 /uL (0-25.1); HYALINE CASTS 1 /uL (0-3.1); PH,URINE 5.5 (5.0-8.0); URINE APPEARANCE CLOUDY; URINE BACTERIA 10 /uL (0-1359); URINE BILIRUBIN NEGATIVE (NEGATIVE); URINE COLOR YELLOW; URINE GLUCOSE (UA) NEGATIVE (NEGATIVE); URINE KETONE NEGATIVE (NEGATIVE); URINE LEUK ESTERASE NEGATIVE (NEGATIVE); URINE NITRITE NEGATIVE (NEGATIVE); URINE PROTEIN 1+ (NEGATIVE); URINE RBC 1324 /uL (0-23.9); URINE UROBILINOGEN 0.2 mg/dL (0.2-1.0); URINE WBC 22 /uL (0-25.8)
[2021-11-19 14:25] LABS: ACTIVATED PTT 36.9 SECONDS (25.2-36.5)
[2021-11-19 14:27] LABS: CHLORIDE 106 mmol/L (98-107); SODIUM 139 mmol/L (136-145)
[2021-11-19 14:33] LABS: ALBUMIN 2.6 g/dl (3.4-5.0); BLOOD UREA NITROGEN 13.4 mg/dL (7-18); CALCIUM 8.7 mg/dL (8.5-10.1); CO2 30 mmol/L (21-32)
[2021-11-19 14:34] LABS: GLUCOSE,RANDOM 104 mg/dL (74-106)
[2021-11-19 14:37] LABS: SGOT/AST 82 U/L (15-37)
[2021-11-19 14:38] LABS: BILIRUBIN,TOTAL 0.8 mg/dL (0.2-1); TOT PROT 6.8 g/dl (6.4-8.2)
[2021-11-19 14:39] LABS: ALK PHOS 113 U/L (45-117)
[2021-11-19 14:46] LABS: INR 1.52 (0.83-1.09); PROTHROMBIN TIME (PATIENT) 17.5 SEC (9.7-13.0)
[2021-11-19 15:05] LABS: ANION GAP 3 MMOL/L (8-16); SGPT/ALT 39 U/L (13-61)
[2021-11-19 17:22] LABS: BLOOD UREA NITROGEN 12.3 mg/dL (7-18); CALCIUM 8.8 mg/dL (8.5-10.1)
[2021-11-19 17:26] LABS: CREATININE 0.8 mg/dL (0.55-1.3)
[2021-11-19 18:35] VITALS: BP 149/77; PULSE 74; TEMP 98.4
== END 2021-11-19 18:38 | disposition home or self-care (01) ==
LOC: JER 10:45
DX: R31.9 Hematuria, unspecified (principal)
CPT/HCPCS: 36415; 74176-TC; 80048; 80053; 81003; 85025; 85610; 85730; 87086; 87186; 93005; 93010; 99285-25

== ENCOUNTER 2024-09-11 10:12 | Emergency (ER) | payer OTHER ==
[2024-09-11 10:27] VITALS: BP 138/58; PULSE 74; RESP 16; TEMP 98.7; BMI 25.1
[2024-09-11 12:24] LABS: ABSOLUTE IMMATURE GRANULOCYTES 0.01 x10^3/uL (0.0-0.031); BASOPHILS # 0.02 x10^3/uL (0.01-0.08); EOSINOPHIL % 1.8 % (0.8-7.0); EOSINOPHILS # 0.11 x10^3/uL (0.04-0.54); HEMATOCRIT 39.2 % (40.1-51.0); HEMOGLOBIN 12.6 g/dL (13.7-17.5); MCHC 32.1 g/dl (32.3-36.5); MEAN CELL VOLUME 89.3 fl (79.0-92.2); MEAN PLT VOLUME 9.8 fl (9.4-12.4); MONOCYTE # 0.63 x10^3/uL (0.30-0.82); MONOCYTE % 10.1 % (5.3-12.2); PLATELET COUNT # 144 x10^3/uL (163-337); RDW 13.9 % (12.2-16.6)
[2024-09-11 12:39] LABS: CHLORIDE 107 mmol/L (98-107); POTASSIUM 4.4 mmol/L (3.5-5.1); SODIUM 142 mmol/L (136-145)
[2024-09-11 12:41] LABS: CALCIUM 8.6 mg/dL (8.5-10.1)
[2024-09-11 12:42] LABS: ALBUMIN 3.2 g/dl (3.4-5.0); ANION GAP 5 mmol/L (4-13); BLOOD UREA NITROGEN 10.5 mg/dL (7-18); CO2 29 mmol/L (21-32); GLUCOSE,RANDOM 98 mg/dL (74-106)
[2024-09-11 12:45] LABS: CREATININE 1.3 mg/dL (0.55-1.3); SGOT/AST 66 U/L (15-37); SGPT/ALT 73 U/L (13-61)
[2024-09-11 12:46] LABS: BILIRUBIN,TOTAL 0.4 mg/dL (0.2-1); TOT PROT 6.7 g/dl (6.4-8.2)
[2024-09-11 12:48] LABS: ALK PHOS 116 U/L (45-117)
[2024-09-11 13:01] LABS: ERYTHROCYTE SEDIMENTATION RATE 12 mm/hr (0-20)
== END 2024-09-11 14:33 | disposition short-term general hospital (02) ==
LOC: JER 10:12
DX: H53.132 Sudden visual loss, left eye (principal); R51.9 Headache, unspecified; R94.31 Abnormal electrocardiogram [ECG] [EKG]
CPT/HCPCS: 0241U-QW; 36415; 70450-TC; 80053; 85025; 85651; 86140; 93005; 93010; 99285-25

== ENCOUNTER 2025-02-09 11:20 | Emergency (ER) | payer OTHER ==
[2025-02-09 11:27] VITALS: BP 136/69; PULSE 77; RESP 20; TEMP 98; BMI 25.1
== END 2025-02-09 12:01 | disposition home or self-care (01) ==
LOC: JERFT 11:20
DX: M62.830 Muscle spasm of back (principal); M54.50 Low back pain, unspecified; G89.29 Other chronic pain
CPT/HCPCS: 99283-25

== ENCOUNTER 2025-02-22 11:19 | Emergency (ER) | payer OTHER ==
[2025-02-22 11:27] VITALS: BP 157/80; PULSE 78; RESP 18; TEMP 98.2; BMI 25.1
[2025-02-22] MEDS ORDERED: LIDOCAINE 4% PATCH TP ONE (12:25)
[2025-02-22] MEDS: LIDOCAINE 5% TOPICAL PATCH TP ONE (12:31)
[2025-02-22] MEDS ORDERED: LIDOCAINE PATCH REMOVAL MC SCH (22:00)
== END 2025-02-22 15:35 | disposition home or self-care (01) ==
LOC: JERFT 11:19
DX: M54.50 Low back pain, unspecified (principal); G89.29 Other chronic pain
CPT/HCPCS: 72131-TC; 99284-25